=== PATIENT | male | born 1950 | race Caucasian/White ===

== ENCOUNTER 2020-12-01 06:07 | Inpatient (IN) ==
--- NOTE | 2020-11-16 15:31 | PAT Medication Instructions ---
Medication Instructions Date of Service November 16, 2020 Home Medications aspirin 325 mg PO QAM atorvastatin 80 mg PO PM cholecalciferol (vitamin D3) [Vitamin D3] 10 mcg PO QAM folic acid 0.4 mg PO QAM gabapentin 800 mg PO HS hydrochlorothiazide 25 mg PO QDL ibuprofen 200 mg PO DAILY PRN lisinopril 40 mg PO QDL magnesium 15 mg PO QAM metformin 500 mg PO BID multivitamin [Multiple Vitamin] 1 tab PO QAM tamsulosin 0.4 mg PO QDL Continue as directed tamsulosin 0.4 mg PO QDL ASK your surgeon for instructions ibuprofen 200 mg PO DAILY PRN ASK your prescriber and surgeon aspirin 325 mg PO QAM DO NOT take the morning of surgery cholecalciferol (vitamin D3) [Vitamin D3] 10 mcg PO QAM folic acid 0.4 mg PO QAM hydrochlorothiazide 25 mg PO QDL lisinopril 40 mg PO QDL magnesium 15 mg PO QAM metformin 500 mg PO BID multivitamin [Multiple Vitamin] 1 tab PO QAM Take evening before surgery atorvastatin 80 mg PO PM gabapentin 800 mg PO HS metformin 500 mg PO BID OTHERWISE NOTHING TO EAT OR DRINK AFTER MIDNIGHT Other Notes If you have any questions please call us at [phone] or [phone] or [phone] or [phone]
--- NOTE | 2020-11-17 10:00 | Anesthesiology Consultation ---
Date of Service November 17, 2020 Assessment & Plan (1) Encounter for pre-operative examination: Chart Review Chart Review: Pending: Refer to Additional Notes / Consult section (surgeon ordered PCP clearance and preop Covid testing results ) and Patient seen in Pre Admission Testing Awaiting surgeon ordered PCP clearance scheduled 11/21 - Check BSG AM DOS Per PAT appointment 11/17/2020, patient denies any recent travel/large group gatherings. No known Covid infection in the past 90 days. No known Covid positive contacts or Covid related symptoms. Scheduled for preop Covid testing 11/24/20 at [facility] will await results. Seen by cardiology 08/29/2020 = patient seen for routine follow-up. Patient has been doing very well. No complaints from a cardiac standpoint and denies any chest pain, S OB, palpitations, lightheadedness, dizziness, or syncope. CADstable. Low normal LV systolic function (EF 55 to 55%) with apical scarringstable by most recent echocardiogram October 2019. "From a cardiac standpoint he is doing very well and no further cardiac testing or intervention is necessary at this time. He is on a very good medical regimen and no changes will be made today. I have encouraged him to increase his activities once his sciatica is under control and will see him back here on an annual basis." Teaching & Discussion Pre-Anesthesia Teaching/Discussion Notes: Instructed NPO after midnight before surgery,except medications with 15 cc of water. Medication instructions provided according to the PAT guidelines. History Surgery Operation Date: 12/01/20 07:45 Proposed Procedures p L2-L5 Decompression and Fusion, Spinal Cord Monitoring - Ra Erickson DO Height/Weight Height: 6 ft 2 in Weight: 113.4 kg Allergies Allergy/AdvReac Type Severity Reaction Status Date / Time chlorhexidine Allergy Intermediate rash/ novak Verified 12/01/20 06:49 Medications Home Medications Medication Instructions Recorded Confirmed Last Taken aspirin 325 mg PO QAM 11/16/20 12/01/20 1 Week Ago ~11/24/20 atorvastatin 80 mg PO PM 11/16/20 11/16/20 Unknown cholecalciferol (vitamin D3) 10 mcg PO QAM 11/16/20 11/16/20 Unknown [Vitamin D3] folic acid 0.4 mg PO QAM 11/16/20 12/01/20 11/30/20 08:00 gabapentin 800 mg PO HS 11/16/20 12/01/20 11/29/20 21:00 hydrochlorothiazide 25 mg PO QDL 11/16/20 12/01/20 11/28/20 14:00 ibuprofen 200 mg PO DAILY PRN 11/16/20 12/01/20 1 Week Ago ~11/24/20 lisinopril 40 mg PO QDL 11/16/20 12/01/20 11/28/20 14:00 magnesium 15 mg PO QAM 11/16/20 12/01/20 11/30/20 08:00 metformin 500 mg PO BID 11/16/20 12/01/20 1 Week Ago ~11/24/20 multivitamin [Multiple Vitamin] 1 tab PO QAM 11/16/20 12/01/20 11/30/20 08:00 tamsulosin 0.4 mg PO QDL 11/16/20 12/01/20 11/30/20 08:00 Active Medications Generic Name Dose Route Start Last Admin Trade Name Harsh PRN Reason Stop Dose Admin Acetaminophen 1,000 mg 12/01/20 06:00 12/01/20 07:13 Acetaminophen 500 Mg Tab PO 12/01/20 18:00 1,000 mg PREOP AALIYAH Administration Celecoxib 200 mg 12/01/20 06:00 12/01/20 07:13 Celebrex 200 Mg Cap PO 12/01/20 18:00 200 mg PREOP AALIYAH Administration Gabapentin 300 mg 12/01/20 06:00 12/01/20 07:13 Gabapentin 300 Mg Cap PO 12/01/20 18:00 300 mg PREOP AALIYAH Administration Lactated Ringer's 1,000 mls @ 15 mls/hr 12/01/20 06:00 12/01/20 07:13 Lr IV 12/02/20 05:59 15 mls/hr .Q24H AALIYAH Administration Past Medical History Medical History BPH (benign prostatic hyperplasia) CAD (coronary artery disease) 07/2000 x 2 to LAD December 2005 x 3 additional stents to LAD s/p MD Carotid stenosis Per 09/2019 Carotid Duplex: 50-69% right ICA; <50% left ICA Degenerative disc disease Diabetes mellitus, type 2 NIDDM Glucose well controlled and stable Hyperlipidemia Hypertension Myocardial Infarction December 16, 2005 > [facility] > stents Osteoarthritis Sleep apnea bipap Past Family History Family History Mother Diabetes Past Surgical History Surgical History History of heart artery stent x2 1999 > LAD > [facility] x3 2005 > LAD > [facility] History of tooth extraction History of total hip arthroplasty bilat History of total shoulder replacement bilat Past Anesthesia History No Hx of Anesthesia Complications and No Family Hx of Anesthesia Complications History of PONV No Hx of PONV and No Hx of Motion Sickness Social History Smoking Status: Former smoker Do You Dip or Chew Tobacco: No Smoking End Date: 2005 Hx Alcohol Use: Yes Alcohol type: hard liquor alcohol intake frequency: a few times a week Alcohol Intake Frequency Comment: 3X PER WEEK Hx Substance Use: No substance use type: does not use Review of Systems Patient denies chest pain, shortness of breath, dyspnea on exertion, reflux, cough, wheezing, palpitations. No hx of seizures, stroke. No hx of blood clots or blood transfusions Physical Exam Vital Signs Last Vital Signs Temp 36.6 C 12/01/20 06:53 Pulse 67 12/01/20 06:53 Resp 18 12/01/20 06:53 BP 134/71 12/01/20 06:53 Pulse Ox 96 12/01/20 06:53 VITALS BP 146/72 P 65 TEMP 98.2 SP02 96% RESP 16 Constitutional no acute distress ENMT Mouth: no TMJ clicking Thyromental Distance: > or= 3.5 Finger Breadths (4.0) Mallampati Class: II Denies loose or missing teeth Neck + short neck, + thick neck and + limited neck extension (significant ) Respiratory normal respiratory effort; no respiratory distress Auscultation: lungs clear to auscultation bilaterally and + diminished lung sounds (mildly throughout ); no wheezes Cardiovascular Rate/Rhythm: regular rate and regular rhythm Heart Sounds: no murmur Vessels: no carotid bruit Musculoskeletal Spine: no pain with cervical ROM Extremities: extremities normal to inspection Psychiatric Orientation: alert Testing Laboratory Results 11/17/20 10:31 11/17/20 10:31 PT 10.8 Seconds (9.0-12.0) 11/17/20 10:31 INR 1.1 (0.9-1.1) 11/17/20 10:31 APTT 26.4 Seconds (21.0-31.0) 11/17/20 10:31 Hemoglobin A1c 5.7 % (4.5-5.6) H 11/17/20 10:31 Urine Color Dark Yellow 11/17/20 10:31 Urine Appearance Cloudy (Clear) A 11/17/20 10:31 Urine pH 8.0 (4.5-7.5) H 11/17/20 10:31 Ur Specific [place] 1.020 (1.000-1.030) 11/17/20 10:31 Urine Protein Negative (Negative) 11/17/20 10:31 Urine Glucose (UA) Negative (Negative) 11/17/20 10:31 Urine Ketones Trace (Negative) H 11/17/20 10:31 Urine Nitrite Negative (Negative) 11/17/20 10:31 Ur Leukocyte Esterase Negative (Negative) 11/17/20 10:31 Urine WBC (Auto) 0 /hpf (0-5) 11/17/20 10:31 Urine RBC (Auto) 5-10 /hpf (0-4) H 11/17/20 10:31 U Hyaline Cast (Auto) 1-5 /lpf (0-5) 11/17/20 10:31 U Epithel Cells (Auto) 5-10 /lpf (0-5) H 11/17/20 10:31 Urine Bacteria (Auto) Negative (Negative) 11/17/20 10:31 Blood Type B Negative 11/17/20 10:31 Antibody Screen NEGATIVE 11/17/20 10:31 12/01/20 06:41 POC Glucose 126 H Electrocardiogram Date: 11/17/20 Sinus rhythm with first-degree AV block at 69 bpm.. Left anterior fascicular block. Inferior infarct. Anterior lateral infarct. Compared to EKG from Aug 22, 2012- [facility] now present per cardio Chest X-Ray Date: 11/17/20 Findings: + NAD Echocardiogram Date: 10/28/19 EF: 50-54% LV Function: normal (Low normal) Other Findings: + diastolic dysfunction (Grade 2); no LVH Apical akinesis, otherwise normal wall motion. Severe mitral annular calcification. Mitral stenosis absent. Compared to last available study, there has been no interval change.
--- NOTE | 2020-11-17 11:04 | XRay Report ---
XR chest Pre-admission PA/Lat HISTORY: 70 years-old Male pat preoperative exam. No acute chest complaints COMPARISON: Chest radiographs 06/06/2016 TECHNIQUE: PA and lateral views of the chest FINDINGS: Cardiomediastinal and hilar silhouettes are within normal limits. Coronary arterial stenting. Calcifi ed plaque the thoracic aortic arch. There is no pneumothorax, pleural effusion, airspace consolidatio n or overt pulmonary edema. Right shoulder arthroplasty. Degenerative changes of the spine. IMPRESSION: No acute process. ACT 112: Negative or not required by law. The above report was generated using voice recognition software. It may contain grammatical, syntax o r spelling errors. Electronically signed by: Leroy Marks M.D. 11/17/2020 11:03 AM
[2020-11-17 11:32] LABS: Basophils # (auto) 0.04 K/uL (0-0.2); Basophils % (auto) 0.8 %; Eosinophils # (auto) 0.09 K/uL (0-0.5); Eosinophils % (auto) 1.7 %; Hematocrit (blood only) 42.5 % (42-52); Immature Granulocytes # (auto) 0.01 K/uL (0.00-0.02); Immature Granulocytes % (auto) 0.2 %; Lymphocytes # (auto) 2.54 K/uL (1.2-3.4); Lymphocytes % (auto) 47.7 %; Mean Corpuscular Hgb Conc 35.3 g/dL (32-36); Mean Corpuscular Volume 93.4 fL (80-100); Mean Platelet Volume 11.1 fL (7.4-10.4); Monocytes % (auto) 7.5 %; Neutrophils # (auto) 2.25 K/uL (1.4-6.5); Neutrophils % (auto) 42.1 %; Platelet Count 188 K/uL (130-400); RDW Coefficient of Variation 13.6 % (11.5-14.5); RDW Standard Deviation 46.5 fL (36.4-46.3); Red Blood Count 4.55 M/uL (4.7-6.1); White Blood Count 5.33 K/uL (4.8-10.8)
[2020-11-17 11:34] LABS: Appearance Urine Cloudy (Clear); Bacteria Urine Automated Negative (Negative); Bilirubin Urine Negative (Negative); Blood Urine Negative (Negative); Color Urine Dark Yellow; Glucose Urine UA Negative (Negative); Ketones Urine Trace (Negative); Leukocyte Esterase Urine Negative (Negative); Nitrite Urine Negative (Negative); Protein Urine Negative (Negative); Urobilinogen Urine Negative (Negative); WBC Urine Automated 0 /hpf (0-5)
[2020-11-17 11:43] LABS: INR 1.1 (0.9-1.1); Partial Thromboplastin Time 26.4 Seconds (21.0-31.0); Prothrombin Time 10.8 Seconds (9.0-12.0)
[2020-11-17 12:19] LABS: Estimated Average Glucose 117 mg/dl; Hemoglobin A1C 5.7 % (4.5-5.6)
[2020-11-17 13:45] LABS: BUN Creatinine Ratio 22.9 (10-20); Calcium 9.6 mg/dl (8.5-10.1); Creatinine Clr Calc Pharmacy 94.1 ml/min; Est GFR (African American) 92.3; Est GFR (Non-African American) 79.7; Potassium 3.9 mmol/L (3.5-5.1)
--- NOTE | 2020-11-18 05:42 | Electrocardiogram Report ---
Test Reason : Blood Pressure : / mmHG Vent. Rate : 069 BPM Atrial Rate : 069 BPM P-R Int : 228 ms QRS Dur : 112 ms QT Int : 390 ms P-R-T Axes : 113 -45 048 degrees QTc Int : 417 ms Sinus rhythm with 1st degree A-V block Left anterior fascicular block Inferior infarct Anterior infarct Abnormal ECG When compared with ECG of 22-AUG-2012 09:29, Left anterior fascicular block is now Present Confirmed by Misael Koo ([id number]) on 11/18/2020 5:41:55 AM Referred By: Ra Erickson Confirmed By:Misael Koo
[~2020-12-01 06:07] MED LIST: ACETAMINOPHEN 500 MG TAB PO SCH; CeleBREX 200 MG CAP PO SCH; GABAPENTIN 300 MG CAP PO SCH; LR 15ML/HR IV SCH; ceFAZolin 2000MG 2,000 MG/15 ML SYR IV SCH
[2020-12-01] MEDS ORDERED: ATROPINE SULFATE 0.1 MG/ML 10ML SYR IV PRN (07:26)
[2020-12-01] MEDS ORDERED: HYDROmorphone INJ 2 MG/ML SYR/VIAL IV PRN (07:26)
[2020-12-01] MEDS ORDERED: ePHEDrine sulfate 50 MG/ML AMP IV PRN (07:26)
[2020-12-01] MEDS ORDERED: ONDANSETRON INJ 2 MG/ML 2 ML VIAL IV PRN ×2 (07:26→13:43)
[2020-12-01] MEDS ORDERED: fentaNYL citrate 100 MCG/2 ML VIAL IV PRN (07:26)
[2020-12-01] MEDS ORDERED: BUPIVACAINE/EPINEPHRINE 0.5% MPF 1:200,000 30 ML VIAL ONE (07:34)
[2020-12-01] MEDS ORDERED: BACITRACIN INJ 50,000 UNIT VIAL ONE (07:34)
--- NOTE | 2020-12-01 07:35 | History & Physical Bridge Note ---
Date of Service December 01, 2020 History & Physical Bridge Note I have examined the patient, reviewed the History & Physical and in the interval since the performance of the History & Physical I have noted the following changes of clinical significance: no changes noted
--- NOTE | 2020-12-01 07:36 | History & Physical Report ---
Date of Service December 01, 2020 Assessment & Plan (1) Neurogenic claudication due to lumbar spinal stenosis: Admission and Anticipated Discharge Date Admission Date: L2-L5 decompression fusion History of Present Illness Chief Complaint: Back and bilateral leg pain Primary Care Provider: Marlo Gonsalez MD This is a 70-year-old male who presents with chronic persistent back and bilateral leg pain. After failing his course of nonoperative care is here for surgical invention. Allergies Allergy/AdvReac Type Severity Reaction Status Date / Time chlorhexidine Allergy Intermediate rash/ novak Verified 12/01/20 06:49 Home Medications Medication Instructions Recorded Confirmed Type aspirin 325 mg PO QAM 11/16/20 12/01/20 History atorvastatin 80 mg PO PM 11/16/20 11/16/20 History cholecalciferol (vitamin D3) 10 mcg PO QAM 11/16/20 11/16/20 History [Vitamin D3] folic acid 0.4 mg PO QAM 11/16/20 12/01/20 History gabapentin 800 mg PO HS 11/16/20 12/01/20 History hydrochlorothiazide 25 mg PO QDL 11/16/20 12/01/20 History ibuprofen 200 mg PO DAILY PRN 11/16/20 12/01/20 History lisinopril 40 mg PO QDL 11/16/20 12/01/20 History magnesium 15 mg PO QAM 11/16/20 12/01/20 History metformin 500 mg PO BID 11/16/20 12/01/20 History multivitamin [Multiple Vitamin] 1 tab PO QAM 11/16/20 12/01/20 History tamsulosin 0.4 mg PO QDL 11/16/20 12/01/20 History Past Med/Surg History Medical History (Updated 12/01/20 @ 07:36 by Ra Erickson DO) BPH (benign prostatic hyperplasia) CAD (coronary artery disease) 07/2000 x 2 to LAD December 2005 x 3 additional stents to LAD s/p [place] Carotid stenosis Per 09/2019 Carotid Duplex: 50-69% right ICA; <50% left ICA Degenerative disc disease Diabetes mellitus, type 2 NIDDM Glucose well controlled and stable Hyperlipidemia Hypertension Myocardial Infarction December 16, [address] > [facility] > stents Osteoarthritis Sleep apnea bipap Surgical History History of heart artery stent x2 2000 > LAD > [facility] x3 2006 > LAD > [facility] History of tooth extraction History of total hip arthroplasty bilat History of total shoulder replacement bilat Family History Mother Diabetes Social History Smoking Status: Former smoker Smoking End Date: 2005; Second Hand Exposure: No; Do You Dip or Chew Tobacco: No; Tobacco Cessation Education Requested by Patient: No Hx Alcohol Use: Yes Alcohol type: hard liquor Hx Substance Use: No Preferred Language: Moldovan Communication Ability: Effective Rn Procedure Required: No Beliefs That Will Affect Care: None Current Living Situation: Spouse Other Information That Helps Us Care for You: No Feels Safe at Home: Yes Safety Concerns: Feels Safe At This Time Assistive Devices: BiPap and Glasses Physical Exam Physical Exam: Patient is alert and oriented Heart regular rate and rhythm Lungs clear to auscultation Results & Data ([facility]) Vital Signs (Past 12 Hours) Vital Signs Temp Pulse Resp BP Pulse Ox 12/01/20 06:53 36.6 C 67 18 134/71 96
[2020-12-01] MEDS ORDERED: MIDAZOLAM HCL 1 MG/ML 2ML VIAL ONE (07:55)
[2020-12-01] MEDS ORDERED: fentaNYL citrate 100 MCG/2 ML VIAL ONE (07:56)
[2020-12-01] MEDS ORDERED: ROCURONIUM BROMIDE 10 MG/ML 5 ML VIAL IV ONE ×4 (07:56→08:29)
[2020-12-01] MEDS ORDERED: LIDOCAINE HCL 2% 2 ML VIAL/AMP(20MG/ML) INFIL ONE (07:56)
[2020-12-01] MEDS ORDERED: PROPOFOL IV EMULSION 10 MG/ML 20 ML VIAL IV ONE (07:56)
[2020-12-01] MEDS ORDERED: HYDROmorphone INJ 2 MG/ML SYR/VIAL ONE (08:17)
[2020-12-01] MEDS ORDERED: FLOSEAL HEMOSTATIC MATRIX 10ML TOP ONE (08:29)
[2020-12-01] MEDS ORDERED: ONDANSETRON INJ 2 MG/ML 2 ML VIAL ONE (08:30)
[2020-12-01] MEDS ORDERED: DEXAMETHASONE SOD INJ 4 MG/ML VIAL ONE (08:30)
[2020-12-01] MEDS ORDERED: PHENYLEPHRINE 100MCG/ML 5ML SYR ONE (08:53)
[2020-12-01] MEDS ORDERED: ePHEDrine sulfate 50 MG/ML SYR ONE (08:53)
[2020-12-01] MEDS ORDERED: ALBUMIN HUMAN 5% 12.5 GM/250 ML VIAL IV ONE (08:59)
[2020-12-01] MEDS ORDERED: ePHEDrine sulfate 50 MG/ML AMP ONE (09:03)
--- NOTE | 2020-12-01 11:24 | Operative Report ---
Post Operative Report Pre & Post Diagnosis Operation Date: 12/01/20 07:45 Pre-Op Diagnosis: Spinal Stenosis, Lumbar Region with Neurogenic Claudication Post-Op Diagnosis: Spinal Stenosis, Lumbar Region with Neurogenic Claudication I identified the patient and participated in the time-out.: Yes Procedure Operation Date: 12/01/20 07:45 Actual Procedures #1 Lumbar decompression with bilateral medial facetectomies and foraminotomies L1-2, L2-3, L3-4 and L4-5 per #2 posterior spinal fusion L2-3, L3-4 and L4-5. #3 placement posterior segmental instrumentation L2 L5. #4 interbody fusion L3- 4 and L4-5. #5 placement peek cage 12 x 26 mm at L3-4 and L4-5. #6 placement locally harvested morselized autograft in the posterior gutters. #7 placement infuse collagen sponge, master graft in the posterior lateral gutters and I factor and interbody spaces. Surgeon Ra Erickson, DO Crimping Machine Operator For Metal July Hagan Estimated Blood Loss 450 Findings See Below Patient is 6 foot 2 inches tall weighing over 111 kg with a BMI in excess of 31. Patient's body habitus did contribute to significant technical difficulty requiring her deepest retractors longus instruments in order to perform his procedure. This at least 50% increase to the operative time. Specimens None Indications This is a 70-year-old male well-known to me the presents with above-mentioned diagnosis after failing course of nonoperative care is here for the above- mentioned seizure. Description of Procedure Patient was met with identified informed consent obtained. Patient was then taken to the operative suite underwent a patient placed in a prone position the Kenneth table atop Alexander frame. All bony prominences well-padded eyes inspected to ensure no external pressure placed upon the bed at this point the lumbar spine was prepped and draped in the normal sterile fashion. Sharp disse ction with the assistance of Bovie cautery performed down to and exposing the lamina and transverse processes of L2 L3-L4-L5 bilaterally. From a caudal cephalad fashion complete laminectomy of L4 L3 L2 and partial laminectomy L1 was performed including bilateral medial facetectomies and foraminotomies addressing severe spinal stenosis. Pedicle screws were then placed in the left to L3-L4-L5 bilaterally with assistance of fluoroscopy and the proper sized john placed. By way of a transfemoral approach and left complete discectomy of L5-S1 was performed endplates curetted to subcortical being bone and a 12 x 26 mm peek cage filled with I factor graft tapped in position. Then proceeded to L [address] by [address] of a transforaminal approach on the left complete discectomy performed endplates curetted to subcortical bleeding bone and again a 12 x 26 mm peek cage filled with I factor tapped in position. Rods were locked in final position bilaterally. Transverse processes of L2-L3 L4-5 burred to subcortical bleeding bone. Infuse collagen sponge master graft local autograft placed in the posterior gutters. 15 round KRISTA drain inserted. The incision was then closed with 1 Vicryl fascia 2-0 Vicryl subcutaneously and 4 Monocryl for final skin closure. Steri-Strip sterile dressings placed. Patient will continue PACU stable condition. Please note spinal cord monitoring was utilized at the procedure no changes noted. Lastly July Hagan was present at the entire surgery involved the patient positioning complex portions of the surgery and final skin closure. I attest to the content of the Intraoperative Record and any orders documented therein. Any exceptions are noted below.
--- NOTE | 2020-12-01 11:39 | Fluoroscopy Report ---
FL lumbar spine 2-3V CLINICAL HISTORY: L2-5 DECOMPRESSION/FUSION/INTERBODY COMPARISON STUDY: None. FLUOROSCOPY TIME: 54 seconds. FLUOROSCOPIC IMAGES: 3. FINDINGS: Fluoroscopy was provided during multilevel posterior decompression. L3-L4 and L4-L5 discect omies with interbody spacer placement as noted. Bilateral pedicle screws at the L2, L3, L4 and L5 lev els are noted. IMPRESSION: Fluoroscopy provided during posterior decompression with L3-L4 and L4-L5 discectomies an d L2-L5 bilateral pedicle screw fusion. ACT 112: Negative or not required by law. Electronically signed by: Cesar Douglas M.D. 12/01/2020 11:38 AM
--- NOTE | 2020-12-01 12:58 | Anesthesiology Progress Note ---
Date of Service December 01, 2020 Anesthesia Post Procedure Vital Signs Vital Signs: Temp Pulse Pulse Resp BP BP Pulse Ox 12/01/20 12:45 73 14 111/63 94 12/01/20 12:30 71 18 118/73 94 12/01/20 12:25 76 15 139/66 94 12/01/20 12:15 36.7 C 73 19 146/97 H 96 12/01/20 12:05 91 H 16 124/83 98 12/01/20 11:55 77 13 145/86 H 99 12/01/20 11:46 36.4 C L 80 16 152/68 H 97 12/01/20 06:53 36.6 C 67 18 134/71 96 Transfer of Care Handoff Completed per policy Notes Mental Status: alert / awake / arousable and participated in evaluation Patient Amnestic to Procedure: Yes Nausea / Vomiting: adequately controlled Pain: adequately controlled Airway Patency, RR, SpO2: stable & adequate BP & HR: stable & adequate Hydration State: stable & adequate Anesthetic Complications: no major complications apparent and Pt Satisfied with anesthetic care
[2020-12-01] MEDS ORDERED: SOD PHOSPHATE/SOD BIPHOSPHATE ENEMA 132 ML BTL PR PRN (13:43)
[2020-12-01] MEDS ORDERED: DO NOT ADMINISTER FLU VACCINE PRN (13:43)
[2020-12-01] MEDS ORDERED: NALOXONE HCL 0.4 MG/1 ML VIAL/CARP IV PRN (13:43)
[2020-12-01] MEDS ORDERED: LORazepam 0.5 MG/1 ML VIAL IV PRN (13:43)
[2020-12-01] MEDS ORDERED: LORazepam 0.5 MG TAB PO PRN (13:43)
[2020-12-01] MEDS ORDERED: ALUMINUM/MAGNESIUM SUSP 30 ML UDC PO PRN (13:43)
[2020-12-01] MEDS ORDERED: ACETAMINOPHEN 500 MG TAB PO PRN (13:43)
[2020-12-01] MEDS ORDERED: FAMOTIDINE 20 MG TAB PO PRN (13:43)
[2020-12-01] MEDS ORDERED: bisacodyL 10 MG SUPP PR PRN (13:43)
[2020-12-01] MEDS ORDERED: PROMETHAZINE HCL 12.5 MG in SODIUM CHLORIDE 0.9% 50 ML IV PRN (13:43)
[2020-12-01] MEDS ORDERED: ACETAMINOPHEN 1,000 MG/100 ML VIAL IV PRN (13:43)
[2020-12-01] MEDS ORDERED: DO NOT ADMINISTER PNEUMOCOCCAL VACCINE PRN (13:43)
[2020-12-01] MEDS ORDERED: oxyCODONE HCL IR 5 MG TAB (IMMEDIATE RELEASE) PO PRN (13:43)
[2020-12-01] MEDS ORDERED: hydrOXYzine HCl 25 MG TAB PO PRN (13:43)
[2020-12-01] MEDS ORDERED: HYDROmorphone INJ 0.5 MG/0.5 ML SYR IV PRN (13:43)
[2020-12-01] MEDS ORDERED: hydroCHLOROthiazide 25 MG TAB PO SCH (13:43)
[2020-12-01] MEDS ORDERED: MAGNESIUM HYDROXIDE SUSP 30 ML UDC PO PRN (13:43)
[2020-12-01] MEDS ORDERED: METOCLOPRAMIDE HCL INJ 5 MG/ML 2 ML VIAL IV PRN (13:43)
[2020-12-01] MEDS ORDERED: ONDANSETRON 4 MG OD TAB PO PRN (13:43)
[2020-12-01] MEDS ORDERED: HYDROmorphone INJ 1 MG/ML SYRINGE IV PRN (13:43)
[2020-12-01] MEDS ORDERED: traMADol HCL 50 MG TABLET PO PRN (13:43)
[2020-12-01] MEDS ORDERED: PHARMACY GLYCEMIC MGMT CONSULT SCH (14:15)
[2020-12-01] MEDS ORDERED: DEXTROSE 50% 50 ML SYRINGE IV PRN (14:30)
[2020-12-01] MEDS ORDERED: GLUCOSE 40% GEL 15 GM TUBE PO PRN (14:30)
[2020-12-01] MEDS ORDERED: CARBOHYDRATES FOR HYPOGLYCEMIA PO PRN (14:30)
[2020-12-01] MEDS ORDERED: NovoLIN-N (NPH) PER UNIT CHARGE SQ ONE (14:30)
[2020-12-01] MEDS ORDERED: GLUCAGON FOR INJ 1 MG VIAL IM PRN (14:30)
[2020-12-01] MEDS ORDERED: GLUCOSE 10 TABS/TUBE PO PRN (14:30)
--- NOTE | 2020-12-01 14:40 | Consultation ---
Date of Consultation December 01, 2020 Assessment & Plan (1) Neurogenic claudication due to lumbar spinal stenosis: Status post L2-L5 decompression fusion by Dr. Erickson, POD #0 EBL 450 mL; VEL drain 260 mL Tolerated procedure well Pain/wound management per orthopedics Activity, therapy and diet as directed by Ortho Encourage incentive spirometry Monitor H&H, preop hemoglobin 15.0 (2) CAD (coronary artery disease): no chest pain or SOB continue ASA, statin, lisinopril (3) Diabetes mellitus, type 2: controlled, a1c 5.7 on 11/17 glycemic pharmacist on board, appreciate their management hold metformin (4) Hypertension: BP controlled continue lisinopril, hold HCTZ until volume status reassessed in am. (5) Sleep apnea: bipap at HS, pt brought own from home (6) DVT prophylaxis: SCD/TEDS, per primary DISPO: per primary PCP: Wallace FULL CODE Pt was seen and examined in collaboration with Dr. Velez, please see addendum Thank you for this consultation. We will follow the patient with you during their hospital stay. You can reach a member of the [facility] Hospitalist Team 08/04 via pager @ [phone] or hospitalist role on tiger text. Supervising Physician Co-Signing Physician Notes Patient seen and examined by me, care coordinated with Ashlie Bush PA-C, please refer to her note above for further detail. Patient is currently lying in bed, in no acute distress. He is alert and oriented and answering questions appropriately. Currently no complaints, no significant pain after surgery either. Lungs are clear to auscultation bilaterally, without any wheezing rhonchi or crackles. Heart sounds regular. Abdomen soft, obese, nontender, nondistended, positive bowel sounds. Patient is moving extremities spontaneously and to difficulty. Skin is warm, dry, well-p erfused. Yin catheter is placed, drains clear yellow urine. Patient has history of DOC, has home CPAP at the bedside. We will continue to closely monitor, check H&H in the morning. Patient's son is present at the bedside, updated. King Velez MD History of Present Illness Requesting Physician: Dr. Erickson Reason for Consultation: Postop med management Attending Physician: Ra Erickson DO History of Present Illness This is a 70-year-old male who has significant past medical history of CAD, T2DM, HTN, HLD, DOC on BiPAP, right carotid artery stenosis asymptomatic who presents for elective lumbar procedure by Dr. Erickson. He underwent L2-L5 decompression fusion and tolerated the procedure well. Postoperatively he is feeling well and upright eating lunch. His is at bedside. He offers no acute concerns. He denies fever, chills, sweats, lightheadedness, dizziness, chest pain, shortness of breath, nausea, vomiting, abdominal pain. Prior to procedure he denied any difficulty with bowel or urinary habits. He does have history of T2DM controlled on Metformin. His most recent A1c was 5.5. He does have history of CAD with prior angioplasty. He is currently managed on multi drug regimen of ASA, statin, lisinopril. Allergies Allergy/AdvReac Type Severity Reaction Status Date / Time chlorhexidine Allergy Intermediate rash/ novak Verified 12/01/20 06:49 Home Medications Medication Instructions Recorded Confirmed Type aspirin 325 mg PO QAM 11/16/20 12/01/20 History atorvastatin 80 mg PO PM 11/16/20 11/16/20 History cholecalciferol (vitamin D3) 10 mcg PO QAM 11/16/20 11/16/20 History [Vitamin D3] folic acid 0.4 mg PO QAM 11/16/20 12/01/20 History gabapentin 800 mg PO HS 11/16/20 12/01/20 History hydrochlorothiazide 25 mg PO QDL 11/16/20 12/01/20 History ibuprofen 200 mg PO DAILY PRN 11/16/20 12/01/20 History lisinopril 40 mg PO QDL 11/16/20 12/01/20 History magnesium 15 mg PO QAM 11/16/20 12/01/20 History metformin 500 mg PO BID 11/16/20 12/01/20 History multivitamin [Multiple Vitamin] 1 tab PO QAM 11/16/20 12/01/20 History tamsulosin 0.4 mg PO QDL 11/16/20 12/01/20 History lorazepam 0.5 mg PO Q8H PRN #14 tab 12/02/20 Rx oxycodone 5 mg PO Q6H PRN #30 tab 12/02/20 Rx tramadol 50 mg PO Q6H PRN #30 tab 12/02/20 Rx Patient History Medical History (Updated 12/01/20 @ 14:43 by Ashlie Bush PA-C) BPH (benign prostatic hyperplasia) CAD (coronary artery disease) 07/2000 x 2 to LAD December 2005 x 3 additional stents to LAD s/p MT Carotid stenosis Per 09/2019 Carotid Duplex: 50-69% right ICA; <50% left ICA Degenerative disc disease Diabetes mellitus, type 2 NIDDM Glucose well controlled and stable Hyperlipidemia Hypertension Myocardial Infarction December 16, 2005 > MC > stents Osteoarthritis Sleep apnea bipap Surgical History History of heart artery stent x2 1999 > LAD > [facility] x3 2005 > LAD > [facility] History of tooth extraction History of total hip arthroplasty bilat History of total shoulder replacement bilat Family History (Updated 12/01/20 @ 14:36 by Ashlie Bush PA-C) Mother Diabetes Sister Coronary heart disease Social History Smoking Status: Former smoker Smoking End Date: 2005; Second Hand Exposure: No; Do You Dip or Chew Tobacco: No; Tobacco Cessation Education Requested by Patient: No Hx Alcohol Use: Yes Alcohol type: hard liquor Hx Substance Use: No Preferred Language: Lao Communication Ability: Effective House Worker General Required: No Beliefs That Will Affect Care: None marital status: Current Living Situation: Spouse Other Information That Helps Us Care for You: No Feels Safe at Home: Yes Safety Concerns: Feels Safe At This Time Assistive Devices: CPAP, Glasses and Walker Review of Systems Review of Systems: All systems reviewed & are unremarkable except as noted in HPI & below Physical Exam Physical Exam: Constitutional: WD/WN, M, vitals as above, NAD, sitting up in bed, pleasant, conversing easily Head: Normocephalic, Atraumatic Eyes: PERRL, conjunctivae normal, anicteric sclerae ENMT: external ear and nose normal, oropharynx normal Neck: trachea midline, no thyromegaly normal visual inspection Respiratory: normal respiratory effort, lungs clear to auscultation, no wheeze, rales, rhonchi. Normal insp/exp effort, no accessory muscle use Cardiovascular: RRR, no murmur, no edema Vessels: no JVD or carotid bruit Chest: normal inspection of chest Abdomen: normal bowel sounds, soft, nontender, no hepatosplenomegaly Musculoskeletal: no cyanosis or clubbing, AROM x 4, lumbar dressing cdi with vel drain intact Skin: no rashes, warm and dry normal turgor Neurologic: PERRL, EOMI, accommodation nl, no face palsy, no dysarthria CN's II-XI intact bilaterally and moves all extremities Psychiatric: A+Ox3, euthymic affect Lymphatic: no cervical or axillary lymphadenopathy : deferred Results & Data ([facility]) Vital Signs (Past 12 Hours) Vital Signs Temp Pulse Pulse Resp BP BP Pulse Ox 12/01/20 14:08 36.4 C L 71 16 130/71 98 12/01/20 13:30 36.4 C L 67 18 146/69 H 98 12/01/20 13:15 36.7 C 72 15 135/62 97 12/01/20 13:00 36.7 C 71 18 135/62 96 12/01/20 12:45 73 14 111/63 94 12/01/20 12:30 71 18 118/73 94 12/01/20 12:25 76 15 139/66 94 12/01/20 12:15 36.7 C 73 19 146/97 H 96 12/01/20 12:05 91 H 16 124/83 98 12/01/20 11:55 77 13 145/86 H 99 12/01/20 11:46 36.4 C L 80 16 152/68 H 97 12/01/20 06:53 36.6 C 67 18 134/71 96 Laboratory Results Pre op 11/17/20 CBC: h&h15.0 and 42.5, wbc 5.33, plt 188 bmp: 142, K 3.9, bun 22, cr 0.95 Diagnostic Findings Lumbar Spine Xray: IMPRESSION: Fluoroscopy provided during posterior decompression with L3-L4 and L4-L5 discectomies and L2-L5 bilateral pedicle screw fusion. CXR: IMPRESSION: No acute process. Medications Administered Acetaminophen (Acetaminophen 500 Mg Tab) 1,000 mg PO PREOP AALIYAH Stop: 12/01/20 18:00 Last Admin: 12/01/20 07:13 Dose: 1,000 mg Documented by: [id number] Celecoxib (Celebrex 200 Mg Cap) 200 mg PO PREOP AALIYAH Stop: 12/01/20 18:00 Last Admin: 12/01/20 07:13 Dose: 200 mg Documented by: [id number] Gabapentin (Gabapentin 300 Mg Cap) 300 mg PO PREOP AALIYAH Stop: 12/01/20 18:00 Last Admin: 12/01/20 07:13 Dose: 300 mg Documented by: [id number] Lactated Ringer's (Lr) 1,000 mls @ 15 mls/hr IV .Q24H AALIYAH Stop: 12/02/20 05:59 Last Infusion: 12/01/20 07:52 Dose: 0 mls/hr Documented by: [id number] Admin: 12/01/20 07:13 Dose: 15 mls/hr Documented by: [id number] Cefazolin Sodium (Ancef 2000mg) 2,000 mg in 15 mls @ 3.75 mls/min IV PREOP AALIYAH; Protocol Stop: 12/01/20 18:00 Last Admin: 12/01/20 07:52 Dose: 3.75 mls/min Documented by: [id number] Discontinued Medications Bacitracin (Bacitracin Inj 50,000 Unit Vial) Confirm Administered Dose 50,000 units .ROUTE .STK-MED ONE Stop: 12/01/20 07:35 Last Admin: 12/01/20 08:48 Dose: 50,000 units Documented by: [id number] Bupivacaine HCl/Epinephrine Bitart (Bupivacaine/Epinephrine 0.5% Mpf 1:200,000 30 Ml Vial) Confirm Administered Dose 30 ml .ROUTE .STK-MED ONE Stop: 12/01/20 07:35 Last Admin: 12/01/20 08:48 Dose: 20 ml Documented by: [id number] Miscellaneous ( Floseal Hemostatic Matrix 10ml) 10 ml TOP ONCE ONE Stop: 12/01/20 08:30 Last Admin: 12/01/20 11:13 Dose: 7 ml Documented by: [id number] ECG Rate (beats per minute): 69 Rhythm: normal sinus Findings: + 1st degree AV block and + LAFB
--- NOTE | 2020-12-01 14:45 | Pharmacy Report ---
Pharmacy Glycemic Short Note 2 - Date of Service December 01, 2020 - Glycemic Short BSG Results (Last 24 hours): 12/01/20 12/01/20 12/01/20 06:41 11:51 14:12 POC Glucose 126 H 185 H 179 H OUTPATIENT ANTIDIABETIC REGIMEN: * Metformin 500mg PO BID * A1c = 5.7% on 11/17/20 ASSESSMENT: * 70yo T2DM male with excellent outpatient control per recent A1c * Pt is maintained on oral antidiabetic agents as an outpatient * Oral agents are not recommended for inpatient use d/t drug interactions, changing PO intake, and difficulty titrating for acute hyper/hypoglycemia. ADA recommends re-initiating outpatient oral agents 1-2 days prior to discharge if/when appropriate if they were held on admission. * Will hold oral agents for admission and utilize SQ basal bolus insulin regimen which is the recommended regimen for inpatient glycemic control. * Will initiate weight based insulin dosing for insulin sabas patient and titrate based on BSG trends. * Since diet is only clear liquids/DMT2 will initiate low dose basal with NPH for steroid induced hyperglycemia. Pt received 8mg of IV DXM. Typically would cover this with 0.4 units/kg of NPH; however, will only use 0.2 units/kg for decreased PO intake/clear liquid diet. * Will utilize moderate weight based Novolog scale and titrate based on BSG trends. PLAN FOR INPATIENT GLYCEMIC CONTROL: * Hold outpatient oral diabetes medications * Basal insulin/steroid induced hyperglycemia * NPH 20 units SQ x 1 dose JANA * Bolus insulin * NovoLog per scale ACHS or Q6hrs while NPO * Goal Range: Low 100 mg/dL - High 140 mg/dL * Correction Factor: 20 mg/dL/unit * Nutritional / Prandial insulin per carb ratio of 1 unit per 6 grams CHO consumed PLAN FOR DISCHARGE: * A1c is in goal range for age/co-morbidities. No changes needed at DC
[2020-12-01] MEDS: SODIUM CHLORIDE 0.9% 1000ML 1,000 ML IV SCH ×2 (15:13→21:34)
[2020-12-01] MEDS: ceFAZolin 2000MG 2,000 MG/15 ML SYR IV SCH ×2 (15:26→21:22)
[2020-12-01] MEDS: lisinopril 40 MG TAB PO SCH (16:00)
[2020-12-01] MEDS: TAMSULOSIN HCL 0.4 MG CAP PO SCH (16:00)
[2020-12-01] MEDS: INSULIN ASPART 100 UNITS/ML 3 ML PEN SC SCH ×3 (16:02→20:40)
[2020-12-01] MEDS: HYDROCODONE/ACETAMOPHEN 5/325MG TAB PO PRN (19:33)
[2020-12-01] MEDS ORDERED: ZOLPIDEM TARTRATE 5 MG TAB PO PRN (20:02)
[2020-12-01] MEDS: ATORVASTATIN 40 MG TAB PO SCH (20:41)
[2020-12-01] MEDS: DOCUSATE SODIUM/SENNA 50/8.6MG TAB PO SCH (21:22)
[2020-12-01] MEDS: GABAPENTIN 800 MG TAB PO SCH (21:22)
[2020-12-02] MEDS: HYDROCODONE/ACETAMOPHEN 5/325MG TAB PO PRN ×3 (03:00→19:52)
[2020-12-02] MEDS: diphenhydrAMINE Capsule 25 MG CAP PO PRN ×3 (03:00→19:52)
[2020-12-02] MEDS: POLYETHYLENE (MIRALAX) 17 GM PACK PO SCH ×4 (05:54→20:26)
[2020-12-02 06:29] LABS: Basophils # (auto) 0.01 K/uL (0-0.2); Basophils % (auto) 0.1 %; Eosinophils # (auto) 0.02 K/uL (0-0.5); Eosinophils % (auto) 0.2 %; Hematocrit (blood only) 31.8 % (42-52); Hemoglobin 11.1 g/dL (14.0-18.0); Immature Granulocytes # (auto) 0.01 K/uL (0.00-0.02); Immature Granulocytes % (auto) 0.1 %; Lymphocytes # (auto) 2.28 K/uL (1.2-3.4); Lymphocytes % (auto) 28.2 %; Mean Corpuscular Hemoglobin 32.4 pg (25-34); Mean Corpuscular Hgb Conc 34.9 g/dL (32-36); Mean Corpuscular Volume 92.7 fL (80-100); Mean Platelet Volume 10.2 fL (7.4-10.4); Monocytes # (auto) 0.66 K/uL (0.11-0.59); Monocytes % (auto) 8.2 %; Neutrophils # (auto) 5.11 K/uL (1.4-6.5); Neutrophils % (auto) 63.2 %; Platelet Count 161 K/uL (130-400); RDW Coefficient of Variation 13.8 % (11.5-14.5); RDW Standard Deviation 46.9 fL (36.4-46.3); Red Blood Count 3.43 M/uL (4.7-6.1); White Blood Count 8.09 K/uL (4.8-10.8)
[2020-12-02 07:05] LABS: BUN Creatinine Ratio 22.7 (10-20); Calcium 7.8 mg/dl (8.5-10.1); Creatinine Clr Calc Pharmacy 93.2 ml/min; Est GFR (African American) 92.3; Est GFR (Non-African American) 79.7; Potassium 3.7 mmol/L (3.5-5.1)
[2020-12-02] MEDS: ASPIRIN 325 MG ECTAB PO SCH (08:24)
[2020-12-02] MEDS: MULTIVITAMIN TAB PO SCH (08:25)
[2020-12-02] MEDS: FOLIC ACID 400 MCG TAB PO SCH (08:25)
[2020-12-02] MEDS: MAGNESIUM OXIDE 400 MG TAB PO SCH (08:25)
[2020-12-02] MEDS: CHOLECALCIFEROL 400 UNITS 10 MCG TAB PO SCH (08:26)
[2020-12-02] MEDS: INSULIN ASPART 100 UNITS/ML 3 ML PEN SC SCH ×4 (08:28→20:26)
[2020-12-02] MEDS ORDERED: POTASSIUM CHLORIDE CRTAB 20 MEQ TABCR PO STA (09:06)
--- NOTE | 2020-12-02 10:03 | Orthopedic Progress Note ---
Date of Service December 02, 2020 Assessment & Plan (1) Neurogenic claudication due to lumbar spinal stenosis: Admission and Anticipated Discharge Date Admission Date: December 01, 2020 At this time we will continue physical therapy monitor his KRISTA output anticipate discharge home in the next few days. Subjective Back pain controlled leg pain improved Physical Exam Physical Exam: Patient is in the chair at the bedside. Is good strength testing. Results & Data ([facility]) Vital Signs (Past 12 Hours) Vital Signs Temp Pulse Resp BP Pulse Ox 12/02/20 07:57 36.6 C 63 16 104/59 L 100 12/02/20 03:11 36.9 C 67 18 120/78 99
[2020-12-02] MEDS: lisinopril 40 MG TAB PO SCH (11:31)
[2020-12-02] MEDS: TAMSULOSIN HCL 0.4 MG CAP PO SCH (11:32)
--- NOTE | 2020-12-02 12:08 | Hospitalist Progress Note ---
Date of Service December 02, 2020 Assessment & Plan (1) Neurogenic claudication due to lumbar spinal stenosis: Status post L2-L5 decompression fusion by Dr. Erickson, POD #1 Tolerated procedure well Pain/wound management per orthopedics Activity, therapy and diet as directed by Ortho Encourage incentive spirometry Monitor H&H, preop hemoglobin 15.0 Acute blood loss and dilutional anemia Hgb down to 11.1 Expected postop, no need for blood transfusion Patient is asymptomatic Continue to monitor H&H (2) CAD (coronary artery disease): no chest pain or SOB continue ASA, statin, lisinopril (3) Diabetes mellitus, type 2: controlled, a1c 5.7 on 11/17 glycemic pharmacist on board, appreciate their management hold metformin (4) Hypertension: BP controlled continue lisinopril, hold HCTZ until volume status reassessed in am. (5) Sleep apnea: bipap at HS, pt brought own from home (6) DVT prophylaxis: SCD/TEDS, per primary DISPO: per primary PCP: Dr. Gonsalez FULL CODE Thank you for this consultation. We will follow the patient with you during their hospital stay. You can reach a member of the [facility] Hospitalist Team 08/04 via pager @ [phone] or hospitalist role on tiger text. Admission and Anticipated Discharge Date Admission Date: December 01, 2020 Subjective Patient seen in follow-up after back surgery Currently is lying in bed, in no acute distress. Denies any fevers, chills, chest pain, shortness of breath. Reports has been ambulating without difficulty. He used CPAP overnight but had trouble sleeping. Yin catheter was removed, he is voiding without difficulty. He is passing gas but no BM yet. No abdominal pain or nausea, eating without difficulty. Review of Systems Review of Systems: All systems reviewed & are unremarkable except as noted in HPI & below Constitutional: no fever and no chills Respiratory: no cough and no dyspnea Cardiovascular: no chest pain and no palpitations Gastrointestinal: no abdominal pain, no nausea and no vomiting Physical Exam Physical Exam: Constitutional: WD/WN, M, vitals as above, NAD, laying in bed, pleasant, conversing easily Head: Normocephalic, Atraumatic Eyes: PERRL, EOMI, conjunctivae normal, anicteric sclerae ENMT: external ear and nose normal, oropharynx normal Neck: trachea midline, no thyromegaly normal visual inspection Respiratory: normal respiratory effort, lungs clear to auscultation, no wheeze, rales, rhonchi. Normal insp/exp effort, no accessory muscle use Cardiovascular: RRR, no murmur, no edema Vessels: no JVD or carotid bruit Chest: normal inspection of chest Abdomen: normal bowel sounds, soft, nontender, obese Musculoskeletal: no cyanosis or clubbing, AROM x 4, lumbar dressing cdi with vel drain intact Skin: no rashes, warm and dry normal turgor Neurologic: PERRL, EOMI, no face palsy, no dysarthria CN's II-XI intact bilaterally and moves all extremities Psychiatric: A+Ox3, euthymic affect : Yin removed Results & Data Results & Data ([facility]) Vital Signs (Past 12 Hours) Vital Signs Temp Pulse Resp BP Pulse Ox 12/02/20 07:57 36.6 C 63 16 104/59 L 100 12/02/20 03:11 36.9 C 67 18 120/78 99 Laboratory Results 12/02/20 12/02/20 12/02/20 Range/Units 08:03 06:05 06:05 WBC 8.09 (4.8-10.8) K/uL RBC 3.43 L (4.7-6.1) M/uL Hgb 11.1 L (14.0-18.0) g/dL Hct 31.8 L (42-52) % MCV 92.7 (80-100) fL MCH 32.4 (25-34) pg MCHC 34.9 (32-36) g/dL RDW Std Deviation 46.9 H (36.4-46.3) fL RDW Coeff of Garrett 13.8 (11.5-14.5) % Plt Count 161 (130-400) K/uL MPV 10.2 (7.4-10.4) fL Immature Gran % (Auto) 0.1 % Neut % (Auto) 63.2 % Lymph % (Auto) 28.2 % Kerr % (Auto) 8.2 % Eos % (Auto) 0.2 % Baso % (Auto) 0.1 % Neut # (Auto) 5.11 (1.4-6.5) K/uL Lymph # (Auto) 2.28 (1.2-3.4) K/uL Kerr # (Auto) 0.66 H (0.11-0.59) K/uL Eos # (Auto) 0.02 (0-0.5) K/uL Baso # (Auto) 0.01 (0-0.2) K/uL Immature Gran # (Auto) 0.01 (0.00-0.02) K/uL Sodium 141 (136-145) mmol/L Potassium 3.7 (3.5-5.1) mmol/L Chloride 109 H (98-107) mmol/L Carbon Dioxide 27 (21-32) mmol/L Anion Gap 5.0 (3-11) BUN 21 H (7-18) mg/dl Creatinine 0.95 (0.6-1.4) mg/dl Est Cr Clr Drug Dosing 93.2 ml/min Est GFR ( Amer) 92.3 Est GFR (Non-Af Amer) 79.7 BUN/Creatinine Ratio 22.7 H (10-20) Glucose 91 (70-99) mg/dl POC Glucose 108 H (70-99) mg/dl Calcium 7.8 L (8.5-10.1) mg/dl 12/01/20 12/01/20 12/01/20 Range/Units 20:36 17:14 14:12 WBC (4.8-10.8) K/uL RBC (4.7-6.1) M/uL Hgb (14.0-18.0) g/dL Hct (42-52) % MCV (80-100) fL MCH (25-34) pg MCHC (32-36) g/dL RDW Std Deviation (36.4-46.3) fL RDW Coeff of Garrett (11.5-14.5) % Plt Count (130-400) K/uL MPV (7.4-10.4) fL Immature Gran % (Auto) % Neut % (Auto) % Lymph % (Auto) % Kerr % (Auto) % Eos % (Auto) % Baso % (Auto) % Neut # (Auto) (1.4-6.5) K/uL Lymph # (Auto) (1.2-3.4) K/uL Kerr # (Auto) (0.11-0.59) K/uL Eos # (Auto) (0-0.5) K/uL Baso # (Auto) (0-0.2) K/uL Immature Gran # (Auto) (0.00-0.02) K/uL Sodium (136-145) mmol/L Potassium (3.5-5.1) mmol/L Chloride (98-107) mmol/L Carbon Dioxide (21-32) mmol/L Anion Gap (3-11) BUN (7-18) mg/dl Creatinine (0.6-1.4) mg/dl Est Cr Clr Drug Dosing ml/min Est GFR ( Amer) Est GFR (Non-Af Amer) BUN/Creatinine Ratio (10-20) Glucose (70-99) mg/dl POC Glucose 140 H 186 H 179 H (70-99) mg/dl Calcium (8.5-10.1) mg/dl Medications Administered Current Inpatient Medications Acetaminophen (Acetaminophen 500 Mg Tab) 1,000 mg PO Q8H PRN PRN Reason: MILD Pain Scale 1,2,3 & Pre PT Stop: 12/31/20 13:42 Hydrocodone Bitart/Acetaminophen (Hydrocodone/Acetamophen 5/325mg Tab) 1 - 2 tab PO Q4H PRN PRN Reason: Moderate-Severe Pain & Pre PT Stop: 12/15/20 13:42 Last Admin: 12/02/20 03:00 Dose: 2 tab Documented by: Al Hydrox/Mg Hydrox/Simethicone (Aluminum/Magnesium Susp 30 Ml Udc) 30 ml PO Q6H PRN PRN Reason: Dyspepsia Stop: 12/31/20 13:42 Aspirin (Aspirin 325 Mg Ectab) 325 mg PO QAM AALIYAH Stop: 01/01/21 08:59 Last Admin: 12/02/20 08:24 Dose: 325 mg Documented by: Atorvastatin Calcium (Atorvastatin 40 Mg Tab) 80 mg PO PM AALIYAH Stop: 12/31/20 20:59 Last Admin: 12/01/20 20:41 Dose: Not Given Documented by: Bisacodyl (Bisacodyl 10 Mg Supp) 10 mg WI DAILY PRN PRN Reason: Constipation Stop: 12/31/20 13:42 Dextrose (Dextrose 50% 50 Ml Syringe) 25 - 50 ml IV UD PRN; Protocol PRN Reason: Hypoglycemia Protocol Stop: 12/31/20 14:29 Diphenhydramine HCl (Diphenhydramine Capsule 25 Mg Cap) 25 mg PO Q6H PRN PRN Reason: Allergic Rhinitis/Insomnia Stop: 12/31/20 13:42 Last Admin: 12/02/20 03:00 Dose: 25 mg Documented by: Famotidine (Famotidine 20 Mg Tab) 20 mg PO Q12H PRN PRN Reason: Dyspepsia Stop: 12/31/20 13:42 Folic Acid (Folic Acid 400 Mcg Tab) 400 mcg PO QAM [facility] Stop: 01/01/21 08:59 Last Admin: 12/02/20 08:25 Dose: 400 mcg Documented by: Gabapentin (Gabapentin 800 Mg Tab) 800 mg PO HS [facility] Stop: 12/31/20 20:59 Last Admin: 12/01/20 21:22 Dose: 800 mg Documented by: Glucagon (Glucagon For Inj 1 Mg Vial) 1 mg IM UD PRN; Protocol PRN Reason: Hypoglycemia Protocol Stop: 12/31/20 14:29 Glucose (Glucose 40% Gel 15 Gm Tube) 15 - 30 gm PO UD PRN; Protocol PRN Reason: Hypoglycemia Protocol Stop: 12/31/20 14:29 Glucose (Glucose 10 Tabs/Tube) 4 - 8 tabs PO UD PRN; Protocol PRN Reason: Hypoglycemia Protocol Stop: 12/31/20 14:29 Hydrochlorothiazide (Hydrochlorothiazide 25 Mg Tab) 25 mg PO QDL [facility] Stop: 12/31/20 13:42 Last Admin: 12/01/20 15:48 Dose: Not Given Documented by: Hydromorphone HCl (Hydromorphone Inj 0.5 Mg/0.5 Ml Syr) 0.5 mg IV Q3H PRN PRN Reason: MOD pain (scale 4-6) & Pre PT Stop: 12/15/20 13:42 Hydromorphone HCl (Hydromorphone Inj 1 Mg/Ml Syringe) 1 mg IV Q3H PRN PRN Reason: severe pain (scale 7-10) Stop: 12/15/20 13:42 Hydroxyzine HCl (Hydroxyzine Hcl 25 Mg Tab) 25 mg PO Q8H PRN PRN Reason: Anxiety Stop: 12/31/20 13:42 Lorazepam (Ativan) 0.5 mg in 1 mls @ 0.5 mls/min IV Q8H PRN PRN Reason: Sedation/Anxiety Stop: 12/31/20 13:42 Acetaminophen (Ofirmev) 1,000 mg in 100 mls @ 400 mls/hr IV Q8H PRN PRN Reason: MILD Pain Rating 1,2,3 Stop: 12/02/20 13:42 Promethazine HCl 12.5 mg/ (Sodium Chloride) 50.5 mls @ 204 mls/hr IV Q6H PRN PRN Reason: Nausea &/or Vomiting Stop: 12/31/20 13:42 Dexamethasone 8 mg/ Syringe 2 mls @ 1 mls/min IV DAILY AALIYAH Stop: 01/02/21 08:59 Influenza Virus Vaccine Quadrival (Do Not Administer Flu Vaccine) 1 ea N/A PRN PRN PRN Reason: Notification Stop: 12/31/20 13:42 Insulin Aspart (Insulin Aspart 100 Units/Ml 3 Ml Pen) 0 units SC ACHS AALIYAH Stop: 12/31/20 14:29 Last Admin: 12/02/20 08:28 Dose: 7 units Documented by: Lisinopril (Lisinopril 40 Mg Tab) 40 mg PO QDL AALIYAH Stop: 12/31/20 13:42 Last Admin: 12/02/20 11:31 Dose: 40 mg Documented by: Lorazepam (Lorazepam 0.5 Mg Tab) 0.5 mg PO Q8H PRN PRN Reason: Sedation/Anxiety Stop: 12/31/20 13:42 Magnesium Hydroxide (Magnesium Hydroxide Susp 30 Ml Udc) 30 ml PO DAILY PRN PRN Reason: Constipation Stop: 12/31/20 13:42 Magnesium Oxide (Magnesium Oxide 400 Mg Tab) 400 mg PO QAM AALIYAH Stop: 01/01/21 08:59 Last Admin: 12/02/20 08:25 Dose: 400 mg Documented by: Metoclopramide HCl (Metoclopramide Hcl Inj 5 Mg/Ml 2 Ml Vial) 10 mg IV Q6H PRN PRN Reason: Nausea &/or Vomiting Stop: 12/31/20 13:42 Miscellaneous (Carbohydrates For Hypoglycemia ) 15 - 30 gm PO UD PRN PRN Reason: Hypoglycemia Treatment Stop: 12/31/20 14:29 Miscellaneous Information (Pharmacy Glycemic Mgmt Consult) 1 ea N/A UD [facility] Stop: 12/31/20 14:14 Multivitamins (Multivitamin Tab) 1 tab PO QAM AALIYAH Stop: 01/01/21 08:59 Last Admin: 12/02/20 08:25 Dose: 1 tab Documented by: Naloxone HCl (Naloxone Hcl 0.4 Mg/1 Ml Vial/Carp) 0.1 mg IV Q5M PRN; Protocol PRN Reason: Oversedation/Resp Depression Stop: 12/31/20 13:42 Ondansetron HCl (Ondansetron Inj 2 Mg/Ml 2 Ml Vial) 4 mg IV Q6H PRN PRN Reason: Nausea &/or Vomiting Stop: 12/31/20 13:42 Ondansetron HCl (Ondansetron 4 Mg Od Tab) 4 mg PO Q6H PRN PRN Reason: Nausea Stop: 12/31/20 13:42 Oxycodone HCl (Oxycodone Hcl Ir 5 Mg Tab (Immediate Release)) 5 - 10 mg PO Q4H PRN PRN Reason: Moderate-Severe Pain & Pre PT Stop: 12/15/20 13:42 Pneumococcal Polyvalent Vaccine (Do Not Administer Pneumococcal Vaccine) 1 ea N/A PRN PRN PRN Reason: Notification Stop: 12/31/20 13:42 Polyethylene Glycol (Polyethylene (Miralax) 17 Gm Pack) 17 gm PO Q6 AALIYAH Stop: 01/01/21 05:59 Last Admin: 12/02/20 11:32 Dose: 17 gm Documented by: Senna/Docusate Sodium (Docusate Sodium/Senna 50/8.6mg Tab) 2 tab PO HS AALIYAH Stop: 12/31/20 20:59 Last Admin: 12/01/20 21:22 Dose: 2 tab Documented by: Sodium Biphosphate/Sodium Phosphate (Sod Phosphate/Sod Biphosphate Enema 132 Ml Btl) 132 ml WI ONE PRN PRN Reason: Constipation Stop: 12/31/20 13:42 Tamsulosin HCl (Tamsulosin Hcl 0.4 Mg Cap) 0.4 mg PO QDL AALIYAH Stop: 12/31/20 13:42 Last Admin: 12/02/20 11:32 Dose: 0.4 mg Documented by: Tramadol HCl (Tramadol Hcl 50 Mg Tablet) 50 - 100 mg PO Q4H PRN PRN Reason: Moderate-Severe Pain & Pre PT Stop: 12/31/20 13:42 Vitamin D (Cholecalciferol 400 Units 10 Mcg Tab) 400 units PO QAM AALIYAH Stop: 01/01/21 08:59 Last Admin: 12/02/20 08:26 Dose: 400 units Documented by: Zolpidem Tartrate (Zolpidem Tartrate 5 Mg Tab) 5 mg PO HS PRN PRN Reason: Sleep Stop: 12/31/20 20:01 Last Admin: 12/01/20 21:21 Dose: 5 mg Documented by:
[2020-12-02] MEDS: ATORVASTATIN 40 MG TAB PO SCH (19:57)
[2020-12-02] MEDS: GABAPENTIN 800 MG TAB PO SCH (20:26)
[2020-12-02] MEDS: DOCUSATE SODIUM/SENNA 50/8.6MG TAB PO SCH (20:26)
[2020-12-03] MEDS: HYDROCODONE/ACETAMOPHEN 5/325MG TAB PO PRN ×5 (00:45→21:23)
[2020-12-03] MEDS: POLYETHYLENE (MIRALAX) 17 GM PACK PO SCH ×4 (06:11→23:36)
[2020-12-03 06:12] LABS: Hematocrit (blood only) 32.8 % (42-52); Hemoglobin 11.6 g/dL (14.0-18.0); Mean Corpuscular Hgb Conc 35.4 g/dL (32-36); Mean Corpuscular Volume 93.4 fL (80-100); Mean Platelet Volume 10.3 fL (7.4-10.4); Platelet Count 170 K/uL (130-400); RDW Standard Deviation 48.4 fL (36.4-46.3); Red Blood Count 3.51 M/uL (4.7-6.1); White Blood Count 7.72 K/uL (4.8-10.8)
[2020-12-03 06:33] LABS: BUN Creatinine Ratio 22.5 (10-20); Calcium 8.9 mg/dl (8.5-10.1); Creatinine Clr Calc Pharmacy 85.1 ml/min; Est GFR (African American) 82.7; Est GFR (Non-African American) 71.4; Potassium 4.1 mmol/L (3.5-5.1)
--- NOTE | 2020-12-03 07:36 | Hospitalist Progress Note ---
Date of Service December 03, 2020 Assessment & Plan (1) Neurogenic claudication due to lumbar spinal stenosis: Status post L2-L5 decompression fusion by Dr. Erickson, POD #1 Tolerated procedure well Pain/wound management per orthopedics Activity, therapy and diet as directed by Ortho Encourage incentive spirometry Monitor H&H, preop hemoglobin 15.0 Acute blood loss and dilutional anemia Hgb stable at 11.6 from yesterday (11.1) Preop hemoglobin 15.0 Expected postop, no need for blood transfusion Patient is asymptomatic Continue to monitor H&H (2) CAD (coronary artery disease): no chest pain or SOB continue ASA, statin, lisinopril (3) Diabetes mellitus, type 2: controlled, a1c 5.7 on 11/17 glycemic pharmacist on board, appreciate their management hold metformin (4) Hypertension: BP controlled continue lisinopril, hold HCTZ until volume status reassessed in am. (5) Sleep apnea: bipap at HS (6) DVT prophylaxis: SCD/TEDS, per primary DISPO: per primary PCP: Dr. Gonsalez FULL CODE Thank you for this consultation. We will follow the patient with you during their hospital stay. You can reach a member of the [facility] Hospitalist Team 08/04 via pager @ [phone] or hospitalist role on tiger text. Admission and Anticipated Discharge Date Admission Date: December 01, 2020 Subjective Patient seen in follow-up for medical management, after back surgery Currently is sitting up in a chair, in no acute distress. He did use CPAP overnight. Currently denies any fevers, chills, chest pain, shortness of breath. Reports has been ambulating yesterday and feels like he overdid it, had some back pain afterwards Yin catheter was removed yesterday, and he is voiding without difficulty. He is passing flatus but no BM yet. No abdominal pain or nausea, eating without difficulty. Review of Systems Review of Systems: All systems reviewed & are unremarkable except as noted in HPI & below Constitutional: no fever and no chills Respiratory: no cough and no dyspnea Cardiovascular: no chest pain and no palpitations Gastrointestinal: no abdominal pain, no nausea and no vomiting Physical Exam Physical Exam: Constitutional: WD/WN, M, vitals as above, NAD, laying in bed, pleasant, conversing easily Head: Normocephalic, Atraumatic Eyes: PERRL, EOMI, conjunctivae normal, anicteric sclerae ENMT: external ear and nose normal, oropharynx normal Neck: trachea midline, no thyromegaly normal visual inspection Respiratory: normal respiratory effort, lungs clear to auscultation, no wheeze, rales, rhonchi. Normal insp/exp effort, no accessory muscle use Cardiovascular: RRR, no murmur, no edema Vessels: no JVD or carotid bruit Chest: normal inspection of chest Abdomen: normal bowel sounds, soft, nontender, obese Musculoskeletal: no cyanosis or clubbing, AROM x 4, lumbar dressing cdi with vel drain intact Skin: no rashes, warm and dry normal turgor Neurologic: PERRL, EOMI, no face palsy, no dysarthria CN's II-XI intact bilaterally and moves all extremities Psychiatric: A+Ox3, euthymic affect : Yin removed yesterday Results & Data Results & Data ([facility]) Vital Signs (Past 12 Hours) Vital Signs Temp Pulse Resp BP Pulse Ox 12/02/20 22:27 37.1 C 77 18 106/57 L 96 Laboratory Results 12/03/20 12/03/20 12/02/20 Range/Units 05:55 05:55 20:24 WBC 7.72 (4.8-10.8) K/uL RBC 3.51 L (4.7-6.1) M/uL Hgb 11.6 L (14.0-18.0) g/dL Hct 32.8 L (42-52) % MCV 93.4 (80-100) fL MCH 33.0 (25-34) pg MCHC 35.4 (32-36) g/dL RDW Std Deviation 48.4 H (36.4-46.3) fL RDW Coeff of Garrett 14.0 (11.5-14.5) % Plt Count 170 (130-400) K/uL MPV 10.3 (7.4-10.4) fL Sodium 137 (136-145) mmol/L Potassium 4.1 (3.5-5.1) mmol/L Chloride 105 (98-107) mmol/L Carbon Dioxide 28 (21-32) mmol/L Anion Gap 4.0 (3-11) BUN 23 H (7-18) mg/dl Creatinine 1.04 (0.6-1.4) mg/dl Est Cr Clr Drug Dosing 85.1 ml/min Est GFR ( Amer) 82.7 Est GFR (Non-Af Amer) 71.4 BUN/Creatinine Ratio 22.5 H (10-20) Glucose 115 H (70-99) mg/dl POC Glucose 123 H (70-99) mg/dl Calcium 8.9 (8.5-10.1) mg/dl Crossmatch 12/02/20 12/02/20 12/02/20 Range/Units 16:53 12:22 08:03 WBC (4.8-10.8) K/uL RBC (4.7-6.1) M/uL Hgb (14.0-18.0) g/dL Hct (42-52) % MCV (80-100) fL MCH (25-34) pg MCHC (32-36) g/dL RDW Std Deviation (36.4-46.3) fL RDW Coeff of Garrett (11.5-14.5) % Plt Count (130-400) K/uL MPV (7.4-10.4) fL Sodium (136-145) mmol/L Potassium (3.5-5.1) mmol/L Chloride (98-107) mmol/L Carbon Dioxide (21-32) mmol/L Anion Gap (3-11) BUN (7-18) mg/dl Creatinine (0.6-1.4) mg/dl Est Cr Clr Drug Dosing ml/min Est GFR ( Amer) Est GFR (Non-Af Amer) BUN/Creatinine Ratio (10-20) Glucose (70-99) mg/dl POC Glucose 117 H 75 108 H (70-99) mg/dl Calcium (8.5-10.1) mg/dl Crossmatch 12/01/20 Range/Units 06:45 WBC (4.8-10.8) K/uL RBC (4.7-6.1) M/uL Hgb (14.0-18.0) g/dL Hct (42-52) % MCV (80-100) fL MCH (25-34) pg MCHC (32-36) g/dL RDW Std Deviation (36.4-46.3) fL RDW Coeff of Garrett (11.5-14.5) % Plt Count (130-400) K/uL MPV (7.4-10.4) fL Sodium (136-145) mmol/L Potassium (3.5-5.1) mmol/L Chloride (98-107) mmol/L Carbon Dioxide (21-32) mmol/L Anion Gap (3-11) BUN (7-18) mg/dl Creatinine (0.6-1.4) mg/dl Est Cr Clr Drug Dosing ml/min Est GFR ( Amer) Est GFR (Non-Af Amer) BUN/Creatinine Ratio (10-20) Glucose (70-99) mg/dl POC Glucose (70-99) mg/dl Calcium (8.5-10.1) mg/dl Crossmatch See Detail Medications Administered Current Inpatient Medications Acetaminophen (Acetaminophen 500 Mg Tab) 1,000 mg PO Q8H PRN PRN Reason: MILD Pain Scale 1,2,3 & Pre PT Stop: 12/31/20 13:42 Hydrocodone Bitart/Acetaminophen (Hydrocodone/Acetamophen 5/325mg Tab) 1 - 2 tab PO Q4H PRN PRN Reason: Moderate-Severe Pain & Pre PT Stop: 12/15/20 13:42 Last Admin: 12/03/20 06:09 Dose: 2 tab Documented by: Al Hydrox/Mg Hydrox/Simethicone (Aluminum/Magnesium Susp 30 Ml Udc) 30 ml PO Q6H PRN PRN Reason: Dyspepsia Stop: 12/31/20 13:42 Aspirin (Aspirin 325 Mg Ectab) 325 mg PO QAM [facility] Stop: 01/01/21 08:59 Last Admin: 12/02/20 08:24 Dose: 325 mg Documented by: Atorvastatin Calcium (Atorvastatin 40 Mg Tab) 80 mg PO PM AALIYAH Stop: 12/31/20 20:59 Last Admin: 12/02/20 19:57 Dose: Not Given Documented by: Bisacodyl (Bisacodyl 10 Mg Supp) 10 mg VA DAILY PRN PRN Reason: Constipation Stop: 12/31/20 13:42 Dextrose (Dextrose 50% 50 Ml Syringe) 25 - 50 ml IV UD PRN; Protocol PRN Reason: Hypoglycemia Protocol Stop: 12/31/20 14:29 Diphenhydramine HCl (Diphenhydramine Capsule 25 Mg Cap) 25 mg PO Q6H PRN PRN Reason: Allergic Rhinitis/Insomnia Stop: 12/31/20 13:42 Last Admin: 12/02/20 19:52 Dose: 25 mg Documented by: Famotidine (Famotidine 20 Mg Tab) 20 mg PO Q12H PRN PRN Reason: Dyspepsia Stop: 12/31/20 13:42 Folic Acid (Folic Acid 400 Mcg Tab) 400 mcg PO QAM [facility] Stop: 01/01/21 08:59 Last Admin: 12/02/20 08:25 Dose: 400 mcg Documented by: Gabapentin (Gabapentin 800 Mg Tab) 800 mg PO HS [facility] Stop: 12/31/20 20:59 Last Admin: 12/02/20 20:26 Dose: Not Given Documented by: Glucagon (Glucagon For Inj 1 Mg Vial) 1 mg IM UD PRN; Protocol PRN Reason: Hypoglycemia Protocol Stop: 12/31/20 14:29 Glucose (Glucose 40% Gel 15 Gm Tube) 15 - 30 gm PO UD PRN; Protocol PRN Reason: Hypoglycemia Protocol Stop: 12/31/20 14:29 Glucose (Glucose 10 Tabs/Tube) 4 - 8 tabs PO UD PRN; Protocol PRN Reason: Hypoglycemia Protocol Stop: 12/31/20 14:29 Hydrochlorothiazide (Hydrochlorothiazide 25 Mg Tab) 25 mg PO QDL [facility] Stop: 12/31/20 13:42 Last Admin: 12/01/20 15:48 Dose: Not Given Documented by: Hydromorphone HCl (Hydromorphone Inj 0.5 Mg/0.5 Ml Syr) 0.5 mg IV Q3H PRN PRN Reason: MOD pain (scale 4-6) & Pre PT Stop: 12/15/20 13:42 Hydromorphone HCl (Hydromorphone Inj 1 Mg/Ml Syringe) 1 mg IV Q3H PRN PRN Reason: severe pain (scale 7-10) Stop: 12/15/20 13:42 Hydroxyzine HCl (Hydroxyzine Hcl 25 Mg Tab) 25 mg PO Q8H PRN PRN Reason: Anxiety Stop: 12/31/20 13:42 Lorazepam (Ativan) 0.5 mg in 1 mls @ 0.5 mls/min IV Q8H PRN PRN Reason: Sedation/Anxiety Stop: 12/31/20 13:42 Promethazine HCl 12.5 mg/ (Sodium Chloride) 50.5 mls @ 204 mls/hr IV Q6H PRN PRN Reason: Nausea &/or Vomiting Stop: 12/31/20 13:42 Dexamethasone 8 mg/ Syringe 2 mls @ 1 mls/min IV DAILY [facility] Stop: 01/02/21 08:59 Influenza Virus Vaccine Quadrival (Do Not Administer Flu Vaccine) 1 ea N/A PRN PRN PRN Reason: Notification Stop: 12/31/20 13:42 Insulin Aspart (Insulin Aspart 100 Units/Ml 3 Ml Pen) 0 units SC ACHS [facility] Stop: 12/31/20 14:29 Last Admin: 12/02/20 20:26 Dose: Not Given Documented by: Insulin Human NPH (Novolin-N (Nph) Per Unit Charge) 20 units SQ DAILY@0900 [facility] Stop: 01/02/21 08:59 Lisinopril (Lisinopril 40 Mg Tab) 40 mg PO QDL [facility] Stop: 12/31/20 13:42 Last Admin: 12/02/20 11:31 Dose: 40 mg Documented by: Lorazepam (Lorazepam 0.5 Mg Tab) 0.5 mg PO Q8H PRN PRN Reason: Sedation/Anxiety Stop: 12/31/20 13:42 Last Admin: 12/03/20 06:09 Dose: 0.5 mg Documented by: Magnesium Hydroxide (Magnesium Hydroxide Susp 30 Ml Udc) 30 ml PO DAILY PRN PRN Reason: Constipation Stop: 12/31/20 13:42 Magnesium Oxide (Magnesium Oxide 400 Mg Tab) 400 mg PO QAM [facility] Stop: 01/01/21 08:59 Last Admin: 12/02/20 08:25 Dose: 400 mg Documented by: Metoclopramide HCl (Metoclopramide Hcl Inj 5 Mg/Ml 2 Ml Vial) 10 mg IV Q6H PRN PRN Reason: Nausea &/or Vomiting Stop: 12/31/20 13:42 Miscellaneous (Carbohydrates For Hypoglycemia ) 15 - 30 gm PO UD PRN PRN Reason: Hypoglycemia Treatment Stop: 12/31/20 14:29 Miscellaneous Information (Pharmacy Glycemic Mgmt Consult) 1 ea N/A UD [facility] Stop: 12/31/20 14:14 Multivitamins (Multivitamin Tab) 1 tab PO QAM [facility] Stop: 01/01/21 08:59 Last Admin: 12/02/20 08:25 Dose: 1 tab Documented by: Naloxone HCl (Naloxone Hcl 0.4 Mg/1 Ml Vial/Carp) 0.1 mg IV Q5M PRN; Protocol PRN Reason: Oversedation/Resp Depression Stop: 12/31/20 13:42 Ondansetron HCl (Ondansetron Inj 2 Mg/Ml 2 Ml Vial) 4 mg IV Q6H PRN PRN Reason: Nausea &/or Vomiting Stop: 12/31/20 13:42 Ondansetron HCl (Ondansetron 4 Mg Od Tab) 4 mg PO Q6H PRN PRN Reason: Nausea Stop: 12/31/20 13:42 Oxycodone HCl (Oxycodone Hcl Ir 5 Mg Tab (Immediate Release)) 5 - 10 mg PO Q4H PRN PRN Reason: Moderate-Severe Pain & Pre PT Stop: 12/15/20 13:42 Pneumococcal Polyvalent Vaccine (Do Not Administer Pneumococcal Vaccine) 1 ea N/A PRN PRN PRN Reason: Notification Stop: 12/31/20 13:42 Polyethylene Glycol (Polyethylene (Miralax) 17 Gm Pack) 17 gm PO Q6 AALIYAH Stop: 01/01/21 05:59 Last Admin: 12/03/20 06:11 Dose: 17 gm Documented by: Senna/Docusate Sodium (Docusate Sodium/Senna 50/8.6mg Tab) 2 tab PO HS AALIYAH Stop: 12/31/20 20:59 Last Admin: 12/02/20 20:26 Dose: Not Given Documented by: Sodium Biphosphate/Sodium Phosphate (Sod Phosphate/Sod Biphosphate Enema 132 Ml Btl) 132 ml VA ONE PRN PRN Reason: Constipation Stop: 12/31/20 13:42 Tamsulosin HCl (Tamsulosin Hcl 0.4 Mg Cap) 0.4 mg PO QDL AALIYAH Stop: 12/31/20 13:42 Last Admin: 12/02/20 11:32 Dose: 0.4 mg Documented by: Tramadol HCl (Tramadol Hcl 50 Mg Tablet) 50 - 100 mg PO Q4H PRN PRN Reason: Moderate-Severe Pain & Pre PT Stop: 12/31/20 13:42 Vitamin D (Cholecalciferol 400 Units 10 Mcg Tab) 400 units PO QAM AALIYAH Stop: 01/01/21 08:59 Last Admin: 12/02/20 08:26 Dose: 400 units Documented by: Zolpidem Tartrate (Zolpidem Tartrate 5 Mg Tab) 5 mg PO HS PRN PRN Reason: Sleep Stop: 12/31/20 20:01 Last Admin: 12/01/20 21:21 Dose: 5 mg Documented by:
--- NOTE | 2020-12-03 07:45 | Orthopedic Progress Note ---
Date of Service December 03, 2020 Assessment & Plan (1) Neurogenic claudication due to lumbar spinal stenosis: Patient will stay today for continued pain control. Continue with aggressive bowel regimen. DVT prophylaxis is in the form of teds and SCDs. Maintain KRISTA drain. Continue with ambulation and physical therapy. Anticipate discharge home tomorrow. Admission and Anticipated Discharge Date Admission Date: December 01, 2020 Supervising Physician Co-Signing Physician Notes Dr. Ra Erickson Subjective Patient is postoperative day 2 L2-L5 decompression and fusion. Had a bit of a difficult night due to pain and difficulty sleeping. No radicular leg pain. Is passing flatus. No bowel movement. KRISTA drain output last shift was 190 cc. H&H is morning are 11.6 and 32.8 respectively. Yesterday in physical therapy ambulating roughly 600 feet. No other complaints. Review of Systems Review of Systems: All systems reviewed & are unremarkable except as noted in HPI & below Physical Exam Physical Exam: Patient is alert and oriented x3. No acute distress. Calf soft nontender bilaterally. Strength is 5 5 bilateral EHL, dorsiflexion, plantarflexion, quadriceps, hamstrings. Lumbar dressing is clean dry and intact. Constitutional: WD/WN, vitals as above Eyes: normal visual cristina by confrontation ENMT: external ear and nose normal, oropharynx normal Neck: normal visual inspection Respiratory: normal respiratory effort Cardiovascular: Extremities: normal capillary refill Chest (Breasts): Chest: normal inspection of chest Gastrointestinal (Abdomen): Inspection/Auscultation: abdomen normal to inspection Musculoskeletal: Extremities: strength 5/5 throughout Skin: no rashes, warm and dry Neurologic: normal touch/pain/proprioception and moves all extremities Psychiatric: A+Ox3, euthymic affect Results & Data ([facility]) Vital Signs (Past 12 Hours) Vital Signs Temp Pulse Resp BP Pulse Ox 12/02/20 22:27 37.1 C 77 18 106/57 L 96
[2020-12-03] MEDS: MAGNESIUM OXIDE 400 MG TAB PO SCH (07:48)
[2020-12-03] MEDS: dexAMETHasone 8 MG in SYRINGE 0 ML IV SCH (07:48)
[2020-12-03] MEDS: INSULIN ASPART 100 UNITS/ML 3 ML PEN SC SCH ×4 (08:38→21:39)
[2020-12-03] MEDS: NovoLIN-N (NPH) PER UNIT CHARGE SQ SCH (08:39)
[2020-12-03] MEDS: FOLIC ACID 400 MCG TAB PO SCH (09:56)
[2020-12-03] MEDS: ASPIRIN 325 MG ECTAB PO SCH (09:56)
[2020-12-03] MEDS: CHOLECALCIFEROL 400 UNITS 10 MCG TAB PO SCH (09:56)
[2020-12-03] MEDS: MULTIVITAMIN TAB PO SCH (09:56)
--- NOTE | 2020-12-03 11:23 | Pharmacy Report ---
Pharmacy Glycemic Short Note 2 - Date of Service December 03, 2020 - Glycemic Short BSG Results (Last 24 hours): 12/02/20 12/02/20 12/02/20 12:22 16:53 20:24 Glucose POC Glucose 75 117 H 123 H 12/03/20 12/03/20 05:55 08:07 Glucose 115 H POC Glucose 111 H OUTPATIENT ANTIDIABETIC REGIMEN: * Metformin 500mg PO BID * A1c = 5.7% on 11/17/20 ASSESSMENT: 12/03 * Pt has received 14 units of insulin over the past 24hrs * 0 units of basal with Lantus * 14 units of bolus with NovoLog * BSGs 75-123 mg/dl * Patient restarted on IV Dexamethasone 8mg daily- will give NPH to cover as done on 12/01 * Likely DC tomorrow 12/01 * 70yo T2DM male with excellent outpatient control per recent A1c * Pt is maintained on oral antidiabetic agents as an outpatient * Oral agents are not recommended for inpatient use d/t drug interactions, changing PO intake, and difficulty titrating for acute hyper/hypoglycemia. ADA recommends re-initiating outpatient oral agents 1-2 days prior to discharge if/when appropriate if they were held on admission. * Will hold oral agents for admission and utilize SQ basal bolus insulin regimen which is the recommended regimen for inpatient glycemic control. * Will initiate weight based insulin dosing for insulin sabas patient and titrate based on BSG trends. * Since diet is only clear liquids/DMT2 will initiate low dose basal with NPH for steroid induced hyperglycemia. Pt received 8mg of IV DXM. Typically would cover this with 0.4 units/kg of NPH; however, will only use 0.2 units/kg for decreased PO intake/clear liquid diet. * Will utilize moderate weight based Novolog scale and titrate based on BSG trends. PLAN FOR INPATIENT GLYCEMIC CONTROL: * Hold outpatient oral diabetes medications * Basal insulin/steroid induced hyperglycemia * NPH 20 units SQ daily with IV Dexamethasone * Bolus insulin * NovoLog per scale ACHS or Q6hrs while NPO * Goal Range: Low 110 mg/dL - High 140 mg/dL * Correction Factor: 20 mg/dL/unit * Nutritional / Prandial insulin per carb ratio of 1 unit per 6 grams CHO consumed PLAN FOR DISCHARGE: * A1c is in goal range for age/co-morbidities. No changes needed at DC
[2020-12-03] MEDS: TAMSULOSIN HCL 0.4 MG CAP PO SCH (12:13)
[2020-12-03] MEDS: lisinopril 40 MG TAB PO SCH (12:13)
[2020-12-03] MEDS: ATORVASTATIN 40 MG TAB PO SCH (21:14)
[2020-12-03] MEDS: GABAPENTIN 800 MG TAB PO SCH (21:14)
[2020-12-03] MEDS: DOCUSATE SODIUM/SENNA 50/8.6MG TAB PO SCH (21:14)
[2020-12-04] MEDS: POLYETHYLENE (MIRALAX) 17 GM PACK PO SCH (06:03)
[2020-12-04 06:14] LABS: Hematocrit (blood only) 34.2 % (42-52); Hemoglobin 11.7 g/dL (14.0-18.0); Mean Corpuscular Hemoglobin 32.1 pg (25-34); Mean Corpuscular Hgb Conc 34.2 g/dL (32-36); Mean Platelet Volume 10.1 fL (7.4-10.4); Platelet Count 178 K/uL (130-400); RDW Coefficient of Variation 13.4 % (11.5-14.5); RDW Standard Deviation 46.4 fL (36.4-46.3); Red Blood Count 3.64 M/uL (4.7-6.1); White Blood Count 9.72 K/uL (4.8-10.8)
[2020-12-04 06:37] LABS: BUN Creatinine Ratio 22.3 (10-20); Calcium 8.7 mg/dl (8.5-10.1); Creatinine Clr Calc Pharmacy 97.3 ml/min; Est GFR (African American) 97.2; Est GFR (Non-African American) 83.9; Potassium 3.8 mmol/L (3.5-5.1)
[2020-12-04] MEDS: dexAMETHasone 8 MG in SYRINGE 0 ML IV SCH (08:26)
[2020-12-04] MEDS: HYDROCODONE/ACETAMOPHEN 5/325MG TAB PO PRN (08:29)
[2020-12-04] MEDS: MAGNESIUM OXIDE 400 MG TAB PO SCH (08:30)
[2020-12-04] MEDS: CHOLECALCIFEROL 400 UNITS 10 MCG TAB PO SCH (08:30)
[2020-12-04] MEDS: ASPIRIN 325 MG ECTAB PO SCH (08:30)
[2020-12-04] MEDS: FOLIC ACID 400 MCG TAB PO SCH (08:31)
[2020-12-04] MEDS: MULTIVITAMIN TAB PO SCH (08:31)
[2020-12-04] MEDS: NovoLIN-N (NPH) PER UNIT CHARGE SQ SCH (08:37)
[2020-12-04] MEDS: INSULIN ASPART 100 UNITS/ML 3 ML PEN SC SCH (08:38)
--- NOTE | 2020-12-04 09:06 | Hospitalist Progress Note ---
Date of Service December 04, 2020 Assessment & Plan (1) Neurogenic claudication due to lumbar spinal stenosis: Status post L2-L5 decompression fusion by Dr. Erickson, on 12/01/20 Tolerated procedure well Pain/wound management per orthopedics Activity, therapy and diet as directed by Ortho Encourage incentive spirometry Monitor H&H, preop hemoglobin 15.0 Acute blood loss and dilutional anemia Hgb stable at 11.7 from yesterday Preop hemoglobin 15.0 Expected postop, no need for blood transfusion Patient is asymptomatic Continue to monitor H&H (2) CAD (coronary artery disease): no chest pain or SOB continue ASA, statin, lisinopril (3) Diabetes mellitus, type 2: controlled, a1c 5.7 on 11/17 glycemic pharmacist on board, appreciate their management hold metformin (4) Hypertension: BP controlled continue lisinopril, hold HCTZ - ok to resume HCTZ on DC (5) Sleep apnea: bipap at HS (6) DVT prophylaxis: SCD/TEDS, per primary DISPO: per primary PCP: Dr. Gonsalez FULL CODE Thank you for this consultation. We will follow the patient with you during their hospital stay. You can reach a member of the [facility] Hospitalist Team 08/04 via pager @ [phone] or hospitalist role on tiger text. Admission and Anticipated Discharge Date Admission Date: December 01, 2020 Subjective Patient seen in follow-up for medical management, after back surgery Currently is sitting up in a chair, in no acute distress. He did use CPAP overnight. Reports feeling well,denies any fevers, chills, chest pain, shortness of breath, no abdominal pain, or nausea. Reports has been ambulating Had a BM Review of Systems Review of Systems: All systems reviewed & are unremarkable except as noted in HPI & below Constitutional: no fever and no chills Respiratory: no cough and no dyspnea Cardiovascular: no chest pain and no palpitations Gastrointestinal: no abdominal pain, no nausea and no vomiting Physical Exam Physical Exam: Constitutional: WD/WN, M, vitals as above, NAD, laying in bed, pleasant, conversing easily Head: Normocephalic, Atraumatic Eyes: PERRL, EOMI, conjunctivae normal, anicteric sclerae ENMT: external ear and nose normal, oropharynx normal Neck: trachea midline, no thyromegaly normal visual inspection Respiratory: normal respiratory effort, lungs clear to auscultation, no wheeze, rales, rhonchi. Normal insp/exp effort, no accessory muscle use Cardiovascular: RRR, no murmur, no edema Vessels: no JVD or carotid bruit Chest: normal inspection of chest Abdomen: normal bowel sounds, soft, nontender, obese Musculoskeletal: no cyanosis or clubbing, AROM x 4, lumbar dressing cdi with vel drain intact Skin: no rashes, warm and dry normal turgor Neurologic: PERRL, EOMI, no face palsy, no dysarthria CN's II-XI intact bilaterally and moves all extremities Psychiatric: A+Ox3, euthymic affect Results & Data Results & Data ([facility]) Vital Signs (Past 12 Hours) Vital Signs Temp Pulse Resp BP BP Pulse Ox 12/04/20 07:28 37.0 C 65 16 122/80 100 12/03/20 22:38 36.8 C 66 18 116/72 97 Laboratory Results 12/04/20 12/04/20 12/04/20 Range/Units 07:50 05:55 05:55 WBC 9.72 (4.8-10.8) K/uL RBC 3.64 L (4.7-6.1) M/uL Hgb 11.7 L (14.0-18.0) g/dL Hct 34.2 L (42-52) % MCV 94.0 (80-100) fL MCH 32.1 (25-34) pg MCHC 34.2 (32-36) g/dL RDW Std Deviation 46.4 H (36.4-46.3) fL RDW Coeff of Garrett 13.4 (11.5-14.5) % Plt Count 178 (130-400) K/uL MPV 10.1 (7.4-10.4) fL Sodium 137 (136-145) mmol/L Potassium 3.8 (3.5-5.1) mmol/L Chloride 104 (98-107) mmol/L Carbon Dioxide 28 (21-32) mmol/L Anion Gap 5.0 (3-11) BUN 20 H (7-18) mg/dl Creatinine 0.91 (0.6-1.4) mg/dl Est Cr Clr Drug Dosing 97.3 ml/min Est GFR ( Amer) 97.2 Est GFR (Non-Af Amer) 83.9 BUN/Creatinine Ratio 22.3 H (10-20) Glucose 111 H (70-99) mg/dl POC Glucose 101 H (70-99) mg/dl Calcium 8.7 (8.5-10.1) mg/dl 12/03/20 12/03/20 12/03/20 Range/Units 20:41 16:59 12:03 WBC (4.8-10.8) K/uL RBC (4.7-6.1) M/uL Hgb (14.0-18.0) g/dL Hct (42-52) % MCV (80-100) fL MCH (25-34) pg MCHC (32-36) g/dL RDW Std Deviation (36.4-46.3) fL RDW Coeff of Garrett (11.5-14.5) % Plt Count (130-400) K/uL MPV (7.4-10.4) fL Sodium (136-145) mmol/L Potassium (3.5-5.1) mmol/L Chloride (98-107) mmol/L Carbon Dioxide (21-32) mmol/L Anion Gap (3-11) BUN (7-18) mg/dl Creatinine (0.6-1.4) mg/dl Est Cr Clr Drug Dosing ml/min Est GFR ( Amer) Est GFR (Non-Af Amer) BUN/Creatinine Ratio (10-20) Glucose (70-99) mg/dl POC Glucose 136 H 117 H 118 H (70-99) mg/dl Calcium (8.5-10.1) mg/dl Medications Administered Current Inpatient Medications Acetaminophen (Acetaminophen 500 Mg Tab) 1,000 mg PO Q8H PRN PRN Reason: MILD Pain Scale 1,2,3 & Pre PT Stop: 12/31/20 13:42 Hydrocodone Bitart/Acetaminophen (Hydrocodone/Acetamophen 5/325mg Tab) 1 - 2 tab PO Q4H PRN PRN Reason: Moderate-Severe Pain & Pre PT Stop: 12/15/20 13:42 Last Admin: 12/04/20 08:29 Dose: 1 tab Documented by: Al Hydrox/Mg Hydrox/Simethicone (Aluminum/Magnesium Susp 30 Ml Udc) 30 ml PO Q6H PRN PRN Reason: Dyspepsia Stop: 12/31/20 13:42 Aspirin (Aspirin 325 Mg Ectab) 325 mg PO QAM [facility] Stop: 01/01/21 08:59 Last Admin: 12/04/20 08:30 Dose: 325 mg Documented by: Atorvastatin Calcium (Atorvastatin 40 Mg Tab) 80 mg PO PM AALIYAH Stop: 12/31/20 20:59 Last Admin: 12/03/20 21:14 Dose: Not Given Documented by: Bisacodyl (Bisacodyl 10 Mg Supp) 10 mg [place] DAILY PRN PRN Reason: Constipation Stop: 12/31/20 13:42 Dextrose (Dextrose 50% 50 Ml Syringe) 25 - 50 ml IV UD PRN; Protocol PRN Reason: Hypoglycemia Protocol Stop: 12/31/20 14:29 Diphenhydramine HCl (Diphenhydramine Capsule 25 Mg Cap) 25 mg PO Q6H PRN PRN Reason: Allergic Rhinitis/Insomnia Stop: 12/31/20 13:42 Last Admin: 12/02/20 19:52 Dose: 25 mg Documented by: Famotidine (Famotidine 20 Mg Tab) 20 mg PO Q12H PRN PRN Reason: Dyspepsia Stop: 12/31/20 13:42 Folic Acid (Folic Acid 400 Mcg Tab) 400 mcg PO QAM [facility] Stop: 01/01/21 08:59 Last Admin: 12/04/20 08:31 Dose: 400 mcg Documented by: Gabapentin (Gabapentin 800 Mg Tab) 800 mg PO HS [facility] Stop: 12/31/20 20:59 Last Admin: 12/03/20 21:14 Dose: Not Given Documented by: Glucagon (Glucagon For Inj 1 Mg Vial) 1 mg IM UD PRN; Protocol PRN Reason: Hypoglycemia Protocol Stop: 12/31/20 14:29 Glucose (Glucose 40% Gel 15 Gm Tube) 15 - 30 gm PO UD PRN; Protocol PRN Reason: Hypoglycemia Protocol Stop: 12/31/20 14:29 Glucose (Glucose 10 Tabs/Tube) 4 - 8 tabs PO UD PRN; Protocol PRN Reason: Hypoglycemia Protocol Stop: 12/31/20 14:29 Hydrochlorothiazide (Hydrochlorothiazide 25 Mg Tab) 25 mg PO QDL [facility] Stop: 12/31/20 13:42 Last Admin: 12/01/20 15:48 Dose: Not Given Documented by: Hydromorphone HCl (Hydromorphone Inj 0.5 Mg/0.5 Ml Syr) 0.5 mg IV Q3H PRN PRN Reason: MOD pain (scale 4-6) & Pre PT Stop: 12/15/20 13:42 Hydromorphone HCl (Hydromorphone Inj 1 Mg/Ml Syringe) 1 mg IV Q3H PRN PRN Reason: severe pain (scale 7-10) Stop: 12/15/20 13:42 Hydroxyzine HCl (Hydroxyzine Hcl 25 Mg Tab) 25 mg PO Q8H PRN PRN Reason: Anxiety Stop: 12/31/20 13:42 Lorazepam (Ativan) 0.5 mg in 1 mls @ 0.5 mls/min IV Q8H PRN PRN Reason: Sedation/Anxiety Stop: 12/31/20 13:42 Promethazine HCl 12.5 mg/ (Sodium Chloride) 50.5 mls @ 204 mls/hr IV Q6H PRN PRN Reason: Nausea &/or Vomiting Stop: 12/31/20 13:42 Dexamethasone 8 mg/ Syringe 2 mls @ 1 mls/min IV DAILY [facility] Stop: 01/02/21 08:59 Last Admin: 12/04/20 08:26 Dose: 1 mls/min Documented by: Influenza Virus Vaccine Quadrival (Do Not Administer Flu Vaccine) 1 ea N/A PRN PRN PRN Reason: Notification Stop: 12/31/20 13:42 Insulin Aspart (Insulin Aspart 100 Units/Ml 3 Ml Pen) 0 units SC ACHS [facility] Stop: 12/31/20 14:29 Last Admin: 12/04/20 08:38 Dose: 5 units Documented by: Insulin Human NPH (Novolin-N (Nph) Per Unit Charge) 20 units SQ DAILY@0900 [facility] Stop: 01/02/21 08:59 Last Admin: 12/04/20 08:37 Dose: 20 units Documented by: Lisinopril (Lisinopril 40 Mg Tab) 40 mg PO QDL [facility] Stop: 12/31/20 13:42 Last Admin: 12/03/20 12:13 Dose: 40 mg Documented by: Lorazepam (Lorazepam 0.5 Mg Tab) 0.5 mg PO Q8H PRN PRN Reason: Sedation/Anxiety Stop: 12/31/20 13:42 Last Admin: 12/03/20 06:09 Dose: 0.5 mg Documented by: Magnesium Hydroxide (Magnesium Hydroxide Susp 30 Ml Udc) 30 ml PO DAILY PRN PRN Reason: Constipation Stop: 12/31/20 13:42 Magnesium Oxide (Magnesium Oxide 400 Mg Tab) 400 mg PO QAM AALIYAH Stop: 01/01/21 08:59 Last Admin: 12/04/20 08:30 Dose: 400 mg Documented by: Metoclopramide HCl (Metoclopramide Hcl Inj 5 Mg/Ml 2 Ml Vial) 10 mg IV Q6H PRN PRN Reason: Nausea &/or Vomiting Stop: 12/31/20 13:42 Miscellaneous (Carbohydrates For Hypoglycemia ) 15 - 30 gm PO UD PRN PRN Reason: Hypoglycemia Treatment Stop: 12/31/20 14:29 Miscellaneous Information (Pharmacy Glycemic Mgmt Consult) 1 ea N/A UD [facility] Stop: 12/31/20 14:14 Multivitamins (Multivitamin Tab) 1 tab PO [facility] Stop: 01/01/21 08:59 Last Admin: 12/04/20 08:31 Dose: 1 tab Documented by: Naloxone HCl (Naloxone Hcl 0.4 Mg/1 Ml Vial/Carp) 0.1 mg IV Q5M PRN; Protocol PRN Reason: Oversedation/Resp Depression Stop: 12/31/20 13:42 Ondansetron HCl (Ondansetron Inj 2 Mg/Ml 2 Ml Vial) 4 mg IV Q6H PRN PRN Reason: Nausea &/or Vomiting Stop: 12/31/20 13:42 Ondansetron HCl (Ondansetron 4 Mg Od Tab) 4 mg PO Q6H PRN PRN Reason: Nausea Stop: 12/31/20 13:42 Oxycodone HCl (Oxycodone Hcl Ir 5 Mg Tab (Immediate Release)) 5 - 10 mg PO Q4H PRN PRN Reason: Moderate-Severe Pain & Pre PT Stop: 12/15/20 13:42 Pneumococcal Polyvalent Vaccine (Do Not Administer Pneumococcal Vaccine) 1 ea N/A PRN PRN PRN Reason: Notification Stop: 12/31/20 13:42 Polyethylene Glycol (Polyethylene (Miralax) 17 Gm Pack) 17 gm PO Q6 [facility] Stop: 01/01/21 05:59 Last Admin: 12/04/20 06:03 Dose: 17 gm Documented by: Senna/Docusate Sodium (Docusate Sodium/Senna 50/8.6mg Tab) 2 tab PO HS AALIYAH Stop: 12/31/20 20:59 Last Admin: 12/03/20 21:14 Dose: Not Given Documented by: Sodium Biphosphate/Sodium Phosphate (Sod Phosphate/Sod Biphosphate Enema 132 Ml Btl) 132 ml [place] ONE PRN PRN Reason: Constipation Stop: 12/31/20 13:42 Tamsulosin HCl (Tamsulosin Hcl 0.4 Mg Cap) 0.4 mg PO QDL AALIYAH Stop: 12/31/20 13:42 Last Admin: 12/03/20 12:13 Dose: 0.4 mg Documented by: Tramadol HCl (Tramadol Hcl 50 Mg Tablet) 50 - 100 mg PO Q4H PRN PRN Reason: Moderate-Severe Pain & Pre PT Stop: 12/31/20 13:42 Last Admin: 12/03/20 18:25 Dose: 100 mg Documented by: Vitamin D (Cholecalciferol 400 Units 10 Mcg Tab) 400 units PO QAM [facility] Stop: 01/01/21 08:59 Last Admin: 12/04/20 08:30 Dose: 400 units Documented by: Zolpidem Tartrate (Zolpidem Tartrate 5 Mg Tab) 5 mg PO HS PRN PRN Reason: Sleep Stop: 12/31/20 20:01 Last Admin: 12/01/20 21:21 Dose: 5 mg Documented by:
[2020-12-04] MEDS: TAMSULOSIN HCL 0.4 MG CAP PO SCH (11:03)
[2020-12-04] MEDS: lisinopril 40 MG TAB PO SCH (11:03)
--- NOTE | 2020-12-04 11:14 | Discharge Summary ---
Date of Service December 04, 2020 Admission HPI Per Admitting Provider This is a 70-year-old male who presents with chronic persistent back and bilateral leg pain. After failing his course of nonoperative care is here for surgical invention. Principal Diagnosis Lumbar spinal stenosis with neurogenic claudication Discharge Data Allergies Allergy/AdvReac Type Severity Reaction Status Date / Time chlorhexidine Allergy Intermediate rash/ novak Verified 12/01/20 06:49 Consultations 12/01/20 13:43 Consult Hospitalist Routine Procedures Performed Operation Date: 12/01/20 07:45 Actual Procedures p L2-L5 Decompression and Fusion, Interbody Cage L3-L4, L4-L5 Spinal Cord Monitoring(Not Applicable) - Ra Erickson DO Ordered Studies 12/01/20 07:45 FL fluoroscopy <1hr Routine FL lumbar spine 2-3V Routine Hospital Course (1) Neurogenic claudication due to lumbar spinal stenosis: Patient will have decompression fusion tolerated so was taken to orthopedic for possibly. Postop day 1 is up and ambulating progressive postop day #2 on postop day 3 KRISTA drain decreased appropriate. Pain well controlled. Strength intact. Subsequent discharge home. Discharge orders and instructions were on the chart for further review. Total Time Total Time Spent Total Time Spent (In Minutes): 20 minutes Discharge Plan Discharge Items Patient Disposition: Home - Self-Care Reason For Visit: Spinal Stenosis, Lumbar Region with Neurogenic Discharge Diagnosis: Lumbar spinal stenosis with neurogenic claudication Activity: As commented below Non-emergency contact: Primary Care Provider Call non-emergency contact if: you have any medication questions Follow-up/Referrals: Marlo Gonsalez MD [Primary Care Provider] - Diet: Regular Addtl Attending Provider Instructions: ACTIVITY RECOMMENDATIONS: SELF CARE INSTRUCTIONS AFTER THORACIC/LUMBAR FUSIONS 1. You may walk to your tolerance. It is good exercise for your legs and back. Expect some back and intermittent leg aches and pains. 2. You may perform "counter-top" level activities (make a sandwich, miguelito with a project, etc.). 3. No bending or lifting of more than 10 pounds or back twisting of any nature (roll like a log when turning in bed). 4. You may ride in a car for 20-30 minutes at a time. No driving until after your first visit with your doctor. 5. Frequent changes of position and restricting sitting to 30 minutes at a time will help limit the amount of back spasms and stiffness you may experience. 6. You may discontinue the use of ambulatory aids (cane, crutches, etc.) once your strength and confidence allow. 7. You may frankfurter inspector the shower and let water strike your incision when you arrive home at least once daily. Do not take a tub bath, sit in a hot tub or go into a swimming pool until after your first recheck in the office. SPECIAL CARE INSTRUCTIONS: VERY IMPORTANT TO READ AND REVIEW A. Your surgical incision has been closed with a cosmetic suture under the skin that will dissolve in about 6 weeks. In 14 days, you can use a pair of clean scissors and cut the suture that is left outside of the skin at the ends of your incision. 1. The small skin tapes can be removed 7 days after surgery if they have not fallen off by that point. 2. You may keep the wound open to air as much as possible to promote healing after post-op day number 5 unless told otherwise by your doctor. 3. If you think the wound looks like it is becoming infected (redness or worsening drainage) and/or you are experiencing fever, chill or worsening back pain and muscle spasms, contact the office so that we may evaluate you as soon as possible. B. Complications are uncommon, but please contact us if you have any signs or symptoms of: 1. wound infection (fever higher than 102.5 degrees F, redness, separation of wound, drainage, or increasing pain from the incision) 2. blood clots in legs (pain, swelling, redness and warmth in legs) 3. urinary tract infection (fever higher than 102.5 degrees F, burning upon urination or increased frequency of urination) 4. nerve problems (inability to walk on your toes or heels, numbness, loss of bowel or bladder control) 5. any other symptoms that concern you C. Please call the office at if you have any concerns or questions about your operation or recovery. D. No smoking! Smoking drastically decreases the chance of a solid fusion. E. Do not take any anti-inflammatory medications (Indocin, Advil, Motrin, Aspirin, Naprosyn, etc.) as these may inhibit the chance of a solid fusion. Tylenol is okay to take for pain. MANAGING PAIN AFTER SPINAL SURGERY 1. Narcotic medication is intended for short-term use and will be provided for surgical pain. Surgical pain usually lasts for a period of 4-6 weeks. Narcotic medication includes Percocet, Vicodin, Darvocet, Tylenol #3 or Lortab. 2. Longer-term pain is more appropriately treated with non-narcotic medication such as Tylenol ES. 3. Muscle spasm is not appropriately treated with narcotics. Muscle relaxers such as Soma, Flexeril or Skelaxin can be used along with Tylenol ES. 4. Remember that we all live with some "aches and pains". This is not unusual or uncommon after an injury or as we get older. a. Back pain is expected and may include muscle spasms for 4 to 6 weeks after surgery. The pain should gradually improve. If the pain worsens for no apparent reason, please contact the office. b. Intermittent leg pain may also be experienced and should not be concerned about unless it worsens for no apparent reason. If so, please contact the office. 5. We will provide appropriate medication within the normal guidelines of their prescribed use. We will also be very cautious and aware of potential abuse and extended duration of patients' medication needs. a. Pain medications are for your comfort and to assist with sleep and rest so that the tissue can heal. They are not provided in order to return to normal activity and should not be used through the day. To do so or worsening pain at night can result from ongoing tissue damage and development of tolerance to the prescribed medicine. 6. Please allow 2-3 days to process refills. Prescriptions will not be mailed but must be picked up at the office. FOLLOW UP VISIT: Keep your scheduled follow-up appointment. Any questions, please call the office at . Pending Studies at Discharge: No Stand-Alone Forms: [facility] [employer], Opioid Pain Management, Smoking Cessation Medications and DC Order Prescriptions: New lorazepam 0.5 mg Tablet 0.5 mg PO Q8H PRN (Reason: anxiety) Qty: 14 RF: 0 oxycodone 5 mg tablet 5 mg PO Q6H PRN (Reason: pain, severe) Qty: 30 RF: 0 tramadol 50 mg tablet 50 mg PO Q6H PRN (Reason: pain, moderate) Qty: 30 RF: 0 Continued multivitamin Tablet 1 tab PO QAM RF: 0 metformin 500 mg Tablet 500 mg PO BID RF: 0 atorvastatin 80 mg Tablet 80 mg PO PM RF: 0 magnesium 500 mg Tablet 15 mg PO QAM RF: 0 aspirin 325 mg Tablet 325 mg PO QAM RF: 0 folic acid 400 mcg Tablet 0.4 mg PO QAM RF: 0 tamsulosin 0.4 mg Capsule 0.4 mg PO QDL RF: 0 gabapentin 800 mg Tablet 800 mg PO HS RF: 0 ibuprofen 200 mg Tablet 200 mg PO DAILY PRN (Reason: Pain) RF: 0 hydrochlorothiazide 25 mg Tablet 25 mg PO QDL RF: 0 lisinopril 40 mg Tablet 40 mg PO QDL RF: 0 cholecalciferol (vitamin D3) [Vitamin D3] 10 mcg (400 unit) Tablet,Chewable 10 mcg PO QAM RF: 0 Discharge Orders: Discharge Order (Routine); Ordered 12/04/20 Ordered By: Ra Candelario/Other Patient Handouts: Preventing Deep Vein Thrombosis Admission Data Admit Date/Time: 12/01/20 11:55 Attending Provider: Ra Erickson Admit Provider: Ra Erickson Primary Care Provider: Marlo Gonsalez Other Providers: Florencio Velez Other Interventions: Discharge Summary Assessment (RN) Last Done: 12/04/20 10:53
== END 2020-12-04 13:39 | disposition home or self-care (01) | DRG 454 ==
LOC: ASU 06:07 → PAT 06:07 → 3E 11:55